=== PATIENT | female | born 1940 | race Caucasian/White ===

== ENCOUNTER → 2016-05-17 | Outpatient (CLI) | payer OTHER ==
[~2016-05-17] MED LIST: CALC-51 PO; CALC625T PO; CHOL100010 PO; COENCAP9 PO; FLAX100025 PO; IBUP-1050 PO; LEVO112T2 PO; LISI-461 PO; MULTTAB PO; OMEG1CAP71 PO; RXC5 PO; SIMV20TA5 PO; coq10 PO
== END | disposition home or self-care (01) ==
LOC: C.CTS 09:20
PROVIDERS: ATTEND Orthopaedic Surgery
DX: M19.011 Primary osteoarthritis, right shoulder (principal); Z01.818 Encounter for other preprocedural examination

== ENCOUNTER 2016-09-08 08:45 | Inpatient (IN) | payer OTHER ==
[2016-08-15 12:53] VITALS: BMI 29.0
--- NOTE | 2016-08-15 13:22 | PAT Medication Instructions ---
Service Date Aug 15, 2016. Current Home Medication List Calcium Carbonate-Vitamin D (Calcium), 1 TAB PO QAM Calcium Polycarbophil (Fibercon), 2 CAP PO BID Cholecalciferol (Vitamin D), 1,000 INTER.UNIT PO QAM Ibuprofen (Advil), 400 MG PO PRN Levothyroxine Sodium (Synthroid), 112 MCG PO QAM Lisinopril (Zestril), 10 MG PO QAM Multivitamins/Minerals (Mvi With Minerals), 1 TAB PO QAM Amelia 3 Fatty Acids-Amelia 6 Fa (Amelia 3-6-9 Complex), 1 CAP PO BID Simvastatin (Zocor), 20 MG PO QPM [coq10], 250 MG PO QPM Medication Instructions For Your Scheduled Surgery - Hold the following medications 2 weeks prior to surgery: [coq10], 250 MG PO QPM Amelia 3 Fatty Acids-Amelia 6 Fa (Amelia 3-6-9 Complex), 1 CAP PO BID - Hold the following medications the morning of surgery: Lisinopril (Zestril), 10 MG PO QAM Multivitamins/Minerals (Mvi With Minerals), 1 TAB PO QAM Calcium Carbonate-Vitamin D (Calcium), 1 TAB PO QAM Cholecalciferol (Vitamin D), 1,000 INTER.UNIT PO QAM Calcium Polycarbophil (Fibercon), 2 CAP PO BID Ibuprofen (Advil), 400 MG PO PRN (otherwise okay to continue per surgeon) - Take the following medications the morning of surgery with a sip of water OTHERWISE NOTHING TO EAT OR DRINK AFTER MIDNIGHT: Levothyroxine Sodium (Synthroid), 112 MCG PO QAM - Take the following medications as scheduled the night before surgery: Simvastatin (Zocor), 20 MG PO QPM Calcium Polycarbophil (Fibercon), 2 CAP PO BID If you have any questions please call us at [phone] or [phone] or [phone]
[2016-08-15 13:55] LABS: BASO % 0.8 %; BASO ABS # 0.07 K/uL (0-0.2); COMPLETE YES; EOS % 3.7 %; HEMATOCRIT 39.3 % (37-47); IG% 0.2 %; LYMPH % 36.1 %; LYMPH ABS # 3.12 K/uL (1.2-3.4); MEAN CORPUSCULAR HEMOGLOBIN 28.8 pg (25-34); MEAN CORPUSCULAR HGB CONC 34.4 g/dl (32-36); MEAN PLATELET VOLUME 8.9 fL (7.4-10.4); MONO % 8.3 %; NEUT % 50.9 %; PLATELET COUNT 299 K/uL (130-400); RED BLOOD COUNT 4.68 M/uL (4.2-5.4); WHITE BLOOD COUNT 8.65 K/uL (4.8-10.8)
[2016-08-15 14:14] LABS: PARTIAL THROMBOPLASTIN RATIO 1.1; PROTHROMBIN TIME (PATIENT) 10.8 SECONDS (9.0-12.0)
--- NOTE | 2016-08-15 14:17 | DIAGNOSTIC IMAGING REPORT ---
CHEST PREADMISSION(PA/LAT) HISTORY: Preop. COMPARISON: Chest 09/27/2015. FINDINGS: The lungs are clear. Cardiac silhouette is normal in size. No pleural effusions. No pneumothorax. Left shoulder prosthesis. IMPRESSION: No significant change compared to the prior study. No acute process. Electronically signed by: Sukhdeep Ortega M.D. 08/15/2016 2:16 PM Dictated Date/Time: 08/15/2016 2:14 PM
[2016-08-15 14:35] LABS: URINE APPEARANCE CLEAR (CLEAR); URINE BILIRUBIN NEG (NEG); URINE COLOR DK YELLOW; URINE NITRITE NEG (NEG); URINE SPECIFIC GRAVITY 1.014 (1.000-1.030); UROBILINOGEN NEG (NEG)
[2016-08-15 14:38] LABS: MANUAL MICROSCOPIC REQUIRED? YES; REVIEW REQ? NO
[2016-08-15 14:47] LABS: BUN/CREATININE RATIO 24.5 (10-20); CALCIUM 10.3 mg/dl (8.5-10.1); CREATININE 0.77 mg/dl (0.60-1.20); POTASSIUM 4.2 mmol/L (3.5-5.1)
[2016-08-15 15:01] LABS: URINE BACTERIA NEG (NEG)
--- NOTE | 2016-09-07 18:19 | HISTORY & PHYSICAL EXAMINATION ---
DATE OF ADMISSION: 09/08/2016 HISTORY AND PHYSICAL ADMISSION NOTE CHIEF COMPLAINT: Primary osteoarthritis of the right shoulder. HISTORY OF PRESENT ILLNESS: Taniya is a pleasant 75-year-old female who has been dealing with chronic right shoulder pain. She did have a history of a humeral shaft fracture in the past. She has a left total shoulder arthroplasty at an outside institution and has done fairly well with that. Unfortunately, she is now having right shoulder pain. She is having trouble sleeping at night. X-rays and clinical examination were diagnostic for osteoarthritis of the shoulder and she elected to proceed with a total shoulder arthroplasty. PAST MEDICAL HISTORY: Significant for hypothyroidism, hyperlipidemia, and hypertension. PAST SURGICAL HISTORY: Significant for appendectomy, left total shoulder arthroplasty, ORIF of the elbow, hysterectomy and cervical surgery. ALLERGIES: None. MEDICATIONS: Include Synthroid 112 mcg daily, lisinopril 10 mg daily, and simvastatin 20 mg daily. FAMILY HISTORY: Noncontributory. SOCIAL HISTORY: The patient is and remains active. REVIEW OF SYSTEMS: She complains of right shoulder pain. All other pertinent review of systems are negative. PHYSICAL EXAMINATION: GENERAL: She is awake, alert and oriented x3. She is in no apparent distress. She is very pleasant. HEENT: Pupils are equal, round and reactive to light. Extraocular motions intact. Oral mucosa is pink and moist. HEART: Regular rate per radial pulse. LUNGS: Ritu symmetrically bilaterally with no audible breath sounds. ABDOMEN: Soft, nontender, nondistended. MUSCULOSKELETAL: On physical examination of the right shoulder, she has about 120 degrees of forward elevation, 100 degrees of abduction, she has crepitus with range of motion. She has about 5/5 muscle strength with full can testing and external rotation. Negative bear hug and belly press test. IMAGING DATA: X-rays of the right shoulder do show advanced glenohumeral arthritis with mostly central wear of the glenoid. There is a fracture of the humeral shaft with slight angulation. The fracture is well healed. IMPRESSION: Advanced osteoarthritis of the right shoulder. PLAN: Will proceed with a Biomet comprehensive right total shoulder arthroplasty. Postoperatively, she will be placed in an arm sling and kept overnight for postoperative medical management. DARIELA
[~2016-09-08] VITALS: Ht 165.1 cm; Wt 79.6 kg
[~2016-09-08 08:45] MED LIST changes: +ACETAMINOPHEN 500 MG TAB PO SCH; +BUPIVACAINE 0.5 % 5 MG/1 ML PF 10ML VIAL ONE; +CEFAZOLIN 2000 MG/60 ML D5W 60 ML IV SCH; +CLONIDINE HCL 100 MCG/ML SYRINGE ONE; -COENCAP9 PO; +FAMOTIDINE 20 MG TAB PO SCH; -FLAX100025 PO; +GABAPENTIN 300 MG CAP PO SCH; +LACTATED RINGER'S 1000ML 1,000 ML IV SCH; +LACTATED RINGER'S 1000ML IV SCH; +MEPIVACAINE HCL 1.5% 30 ML VIAL ONE; +ROPIVACAINE 5MG/ML 30 ML 150 MG, BUPIVACAINE/EPINEPHR 0.5% MPF 30 ML, KETOROLAC TROMETH... INFIL SCH; -RXC5 PO; +TRANEXAMIC ACID INJ 1,000 MG in SODIUM CHLORIDE 0.9% 100ML 100 ML IV SCH
--- NOTE | 2016-09-08 08:50 | History & Physical Bridge Note ---
H&P Re-Evaluation Bridge Note: I have examined the patient, reviewed the History & Physical and in the interval since the performance of the History & Physical I have noted the following changes of clinical significance: No changes noted
[2016-09-08 09:05] VITALS: BP 144/93; PULSE 74; TEMP 36.7; O2SAT 96; Ht 165.1 cm; Wt 79.6 kg
[2016-09-08] MEDS ORDERED: MIDAZOLAM HCL 1 MG/ML 2ML VIAL ONE ×2 (10:58)
[2016-09-08] MEDS ORDERED: FENTANYL CITRATE INJ 50 MCG/1 ML 2 ML VIAL ONE (11:09)
[2016-09-08] MEDS ORDERED: BACITRACIN 50000 UNIT VIAL ONE (11:44)
[2016-09-08] MEDS ORDERED: ORTHO JOINT ANESTHETIC ONE (11:44)
[2016-09-08] MEDS ORDERED: PROPOFOL IV EMULSION 10 MG/ML 20 ML VIAL IV ONE (12:40)
[2016-09-08] MEDS ORDERED: ROCURONIUM BROMIDE 10 MG/ML 5 ML VIAL ONE (12:40)
[2016-09-08] MEDS ORDERED: SUCCINYLCHOLINE 100MG/5ML SYR IV ONE (12:40)
[2016-09-08] MEDS ORDERED: DEXAMETHASONE SOD INJ 4 MG/ML VIAL ONE (12:40)
[2016-09-08] MEDS ORDERED: GLYCOPYRROLATE INJ 0.2 MG/ML VIAL ONE (12:40)
[2016-09-08] MEDS ORDERED: LIDOCAINE HCL 2% 2 ML VIAL (20MG/ML) ONE (12:40)
[2016-09-08] MEDS ORDERED: ONDANSETRON INJ 2 MG/ML 2 ML VIAL ONE (12:40)
[2016-09-08] MEDS ORDERED: NEOSTIGMINE METHYLSULFATE 5 MG/5 ML SYR ONE (12:40)
[2016-09-08] MEDS ORDERED: PHENYLEPHRINE HCL INJ 10 MG/ML VIAL ONE (13:27)
[2016-09-08] MEDS ORDERED: METOCLOPRAMIDE HCL INJ 5 MG/ML 2 ML VIAL IV PRN (14:15)
[2016-09-08] MEDS ORDERED: NALOXONE HCL 0.4 MG/1 ML VIAL/CARP IV PRN (14:15)
[2016-09-08] MEDS ORDERED: BISACODYL 10 MG SUPP PR PRN (14:15)
[2016-09-08] MEDS ORDERED: ONDANSETRON INJ 2 MG/ML 2 ML VIAL IV PRN (14:15)
[2016-09-08] MEDS ORDERED: SOD PHOSPHATE/SOD BIPHOSPHATE ENEMA 132 ML BTL PR PRN (14:15)
[2016-09-08] MEDS ORDERED: MoRPHine SULFATE 2 MG/ML CARP IV PRN (14:15)
[2016-09-08] MEDS ORDERED: MAGNESIUM HYDROXIDE SUSP 30 ML UDC PO PRN (14:15)
[2016-09-08] MEDS ORDERED: OXYCODONE HCL IR 5 MG TAB (IMMEDIATE RELEASE) PO PRN (14:15)
[2016-09-08] MEDS ORDERED: D5W AND 1/2NSS + 20MEQ KCL 1,000 ML IV SCH (14:30)
[2016-09-08] MEDS ORDERED: EpHEDrine SULFATE INJ 50 MG/ML AMP IV PRN (14:45)
[2016-09-08] MEDS ORDERED: ATROPINE SULFATE 0.1 MG/ML 5ML SYR IV PRN (14:45)
--- NOTE | 2016-09-08 14:54 | DIAGNOSTIC IMAGING REPORT ---
RIGHT SHOULDER 2 VIEWS HISTORY: Post shoulder surgery Right COMPARISON: Right shoulder 10/04/2015. FINDINGS: Patient is status post a right total shoulder arthroplasty. The hardware appears intact. No fracture or dislocation. A surgical drain is in place. IMPRESSION: Status post right total shoulder arthroplasty. The hardware appears intact. Electronically signed by: Sukhdeep Ortega M.D. 09/08/2016 2:53 PM Dictated Date/Time: 09/08/2016 2:52 PM
[2016-09-08] MEDS ORDERED: KETOROLAC TROMETHAMINE 30 MG/ML VIAL ONE (15:01)
--- NOTE | 2016-09-08 15:25 | Anesthesiology Progress Note ---
Anesthesia Post Op Note Date & Time Sep 08, 2016 at 15:25 Vital Signs Pain Intensity: 0 Vital Signs Past 12 Hours Date Time Temp Pulse Resp B/P Pulse Ox O2 Delivery O2 Flow Rate FiO2 09/08/16 15:20 64 14 103/57 95 Nasal Cannula 3 09/08/16 15:10 36.2 66 14 101/64 95 Nasal Cannula 3 09/08/16 15:00 66 14 105/64 95 Nasal Cannula 3 09/08/16 14:50 71 14 109/66 96 Mask 5 09/08/16 14:40 73 14 112/64 97 Mask 5 09/08/16 14:30 36.1 70 14 114/70 98 Mask 10 09/08/16 09:05 36.7 74 20 144/93 96 Room Air Notes Mental Status: alert / awake / arousable, participated in evaluation Pt Amnestic to Procedure: Yes Nausea / Vomiting: adequately controlled Pain: adequately controlled Airway Patency, RR, SpO2: stable & adequate BP & HR: stable & adequate Hydration State: stable & adequate Anesthetic Complications: no major complications apparent
[2016-09-08 15:30] VITALS: BP 105/70; PULSE 67; TEMP 36.3; O2SAT 93
[2016-09-08 15:51] VITALS: BP 107/75; PULSE 64; TEMP 36.3; O2SAT 95
[2016-09-08 16:22] VITALS: BP 110/69; PULSE 67; TEMP 36.3; O2SAT 96
[2016-09-08] MEDS: D5W AND 1/2NSS + 20MEQ KCL 1,000 ML IV SCH (16:47)
--- NOTE | 2016-09-08 17:07 | [facility] Post Operative Brief Note ---
Immediate Operative Summary Operative Date Sep 08, 2016. Pre-Operative Diagnosis Osteoarthritis of the Right Shoulder Post-Operative Diagnosis Same as preop Procedure(s) Performed Right Total Shoulder Arthroplasty Cemented Surgeon Dr. Stevens Life Trainer Surgeon(s) Abraham Cruz PA-C Estimated Blood Loss 150 ML Findings as above Specimens A. Right Humeral Head and Bone Complication(s) None Disposition Recovery Room / PACU
--- NOTE | 2016-09-08 17:37 | OPERATIVE REPORT ---
DATE OF OPERATION: 09/08/2016 PREOPERATIVE DIAGNOSIS: Primary osteoarthritis of the right shoulder. POSTOPERATIVE DIAGNOSIS: Same. PROCEDURE: Right total shoulder arthroplasty. SURGEON: Dr. Aneesh Stevens. CORPORATE COMPLIANCE MANAGER: Abraham Cruz PA-C, whose assistance was necessary for positioning of the arm and helping with retraction. ANESTHESIA: General with a right interscalene nerve block. COMPLICATIONS: None. CONDITION: Stable to PACU. IMPLANTS USED: I used a Biomet comprehensive right total shoulder arthroplasty with a medium sized glenoid, a size 10 mini stem and a 46 x 21 mm eccentric head. The glenoid was cemented with Palacos-G cement, cemented in the 3 peg holes and on the posterior aspect of the glenoid component. INDICATIONS: Taniya is a pleasant 75-year-old female who presented to my office with chronic right shoulder pain. X-rays and clinical examination were diagnostic for primary osteoarthritis of the shoulder. After failing conservative treatment, she elected to undergo a right total shoulder arthroplasty. DESCRIPTION OF PROCEDURE: On 09/08/2016, she arrived at [facility] for the above procedure. She was seen in the preoperative holding area and the operative extremity was identified and signed. She was given a preoperative antibiotic and a right interscalene nerve block. She was taken back to the operating room, laid on the table in supine position and put under general anesthesia. She was then put into the beachchair position. The right shoulder was prepped and draped in sterile fashion. Time-out was done and the patient and operative extremity was properly identified. A deltopectoral approach was used. Dissection was taken down through the fascia and the deltopectoral interval was opened up. The anterior shoulder was exposed. The long head of the biceps tendon was tenotomized and the rotator interval was opened. The subscapularis was tenotomized off the lesser tuberosity and the humeral head was dislocated out of the joint. Sequential reaming up to a size 10 reamer was done. Off that reamer, a proximal humeral resection guide was placed and the proximal humerus was resected at 135 degrees of inclination and 30 degrees of retroversion. The inferior osteophytes were then removed and the glenoid was then exposed. Time was spent doing a superior and anterior capsular and labral release. The Biomet signature guide was then snapped on to the anterior aspect of the glenoid and the guidepin was placed in the total shoulder arthroplasty hole. The glenoid measured to be a size medium. The glenoid was then reamed and the central peg hole was drilled. The peripheral peg holes were then drilled and a size medium glenoid was cemented in place. Once cement had dried, the proximal humerus was exposed. Sequential broaching up to a size 10 broach was done. A 46 x 21 mm eccentric head was trialed and seemed to be a good fit. The final humeral implant was then impacted into place followed by a 46 x 21 mm eccentric head. The shoulder was reduced and there was about 50% translation posteriorly and inferiorly. I was able to get through a full range of motion. The subscapularis was then tenodesed back to the lesser tuberosity with transosseous FiberWire sutures and [id number] sutures. The shoulder was then irrigated with 3 liters of normal saline solution with bacitracin. Surrounding soft tissues were injected with 100 mL of an orthopedic pain control cocktail. A drain was placed. The skin was then closed with 2-0 Vicryl and V-Loc suture and a Prineo dressing. She was then placed in a soft dressing and a regular arm sling. She was then extubated, transferred to a the hospital at [facility] and taken to the postanesthesia care unit in stable condition. She tolerated the procedure well. I attest to the content of the Intraoperative Record and any orders documented therein. Any exceptio ns are noted below.
[2016-09-08] MEDS: ACETAMINOPHEN IV 1,000 MG in EMPTY BAG 0 ML IV SCH (17:38)
[2016-09-08 17:52] VITALS: BP 127/79; PULSE 71; O2SAT 96
[2016-09-08 18:44] VITALS: BP 133/78; PULSE 77; TEMP 36.3; O2SAT 95
[2016-09-08] MEDS ORDERED: NURSING DECISION MEDICATION ORDER SCH (19:45)
[2016-09-08] MEDS ORDERED: SENNA 8.6 MG TAB PO SCH (21:00)
[2016-09-08] MEDS ORDERED: SIMVASTATIN 20 MG TAB PO SCH (21:00)
[2016-09-08] MEDS: DOCUSATE SODIUM 100 MG CAP PO SCH (21:05)
[2016-09-08] MEDS: KETOROLAC TROMETHAMINE 15 MG/ML VIAL IV. SCH (21:05)
[2016-09-08] MEDS: CEFAZOLIN IV 2,000 MG in DEXTROSE 5% 50ML 50 ML IV SCH (21:05)
[2016-09-08] MEDS ORDERED: COUGH DROP (SUGAR FREE) LOZ 24 LOZ/1 BOX PO PRN (21:15)
[2016-09-09 00:10] VITALS: BP 122/77; PULSE 64; TEMP 36.4; O2SAT 96
[2016-09-09] MEDS: D5W AND 1/2NSS + 20MEQ KCL 1,000 ML IV SCH (03:12)
[2016-09-09] MEDS: KETOROLAC TROMETHAMINE 15 MG/ML VIAL IV. SCH ×2 (03:13→09:11)
[2016-09-09] MEDS: ACETAMINOPHEN IV 1,000 MG in EMPTY BAG 0 ML IV SCH ×2 (03:13→10:36)
[2016-09-09 03:25] VITALS: BP 133/77; PULSE 67; TEMP 36.5; O2SAT 95
[2016-09-09] MEDS: CEFAZOLIN IV 2,000 MG in DEXTROSE 5% 50ML 50 ML IV SCH (05:03)
[2016-09-09] MEDS ORDERED: LEVOTHYROXINE 112 MCG TAB PO SCH (06:00)
[2016-09-09 06:36] LABS: HEMATOCRIT 34.7 % (37-47); MEAN CELL VOLUME 86.3 fL (80-100); MEAN CORPUSCULAR HEMOGLOBIN 28.9 pg (25-34); MEAN CORPUSCULAR HGB CONC 33.4 g/dl (32-36); MEAN PLATELET VOLUME 8.7 fL (7.4-10.4); PLATELET COUNT 265 K/uL (130-400); RED BLOOD COUNT 4.02 M/uL (4.2-5.4); WHITE BLOOD COUNT 15.43 K/uL (4.8-10.8)
[2016-09-09 06:50] VITALS: BP 126/76; PULSE 72; TEMP 36.3; O2SAT 97
[2016-09-09] MEDS ORDERED: RXC5 PO (07:03)
--- NOTE | 2016-09-09 07:04 | Discharge Instructions ---
Discharge Instructions Date of Service Sep 09, 2016. Admission Reason for Admission: Right Shoulder Osteoarthritis Discharge Discharge Diagnosis / Problem: Arthritis Right Shoulder Discharge Goals Goal(s): Decrease discomfort, Improve function Activity Recommendations Activity Limitations: as noted below Shower/Bathe: may shower/bathe in 3 days . Instructions / Follow-Up Instructions / Follow-Up Activity and Therapy Recommendations: * Wear your sling for 3 weeks, unless otherwise instructed. You may remove your sling to shower and to dress, but otherwise, you should be in your sling at all times, including while sleeping * The shoulder replacement is very stable and you can use your hand while in the sling * Physical Therapy should start about 3-5 days from your day of surgery. Therapy will last about 8-12 weeks * You were shown a series of exercises in the hospital. Do these exercises daily including the exercises you were shown in physical therapy. Medications: * Narcotic You will likely be sent home from the hospital with a prescription for the narcotic pain medication that worked best throughout your stay. * Other medications may be prescribed for specific circumstances. If you have any questions, please call the office at . * Resume previous home medications unless otherwise instructed Dressing Care: You will likely have a Prineo dressing covering your incision. This looks like a glued on clear mesh dressing. Do not remove this dressing until you follow- up in my office in 2-3 weeks. Its pretty hard to peel it off. You may leave the Prineo dressing uncovered or cover it if it is draining a little bit. No further dressing care is required Showering: You may shower 3 days from the day of surgery. Leave the Prineo dressing intact and let the soapy shower water run over it. Do not scrub or soak the dressing or the incision. Things To Watch For: * Drainage from the incision site that occurs more than one week after your surgery. * Increased redness at the incision site. * Fever above 102 degrees Fahrenheit. * Unusual chest pain or shortness of breath. * Call [facility] at with any of the above problems Follow-Up Visit: Follow-up with Dr. Stevens 2-3 weeks after your day of surgery. An appointment was probably scheduled when you signed-up for surgery in the office. If you have any questions call Office Instructions: More detailed instructions as well as Frequently Asked Questions were provided in a folder by our office when you signed-up for surgery. Please review these instructions when you get home. If you have any further questions or concerns, please feel free to call the office at [phone] Current Hospital Diet Patient's current hospital diet: Regular Diet Discharge Diet Recommended Diet: Regular Diet Procedures Procedures Performed: Right Total Shoulder Arthroplasty Cemented Pending Studies Studies pending at discharge: no Medical Emergencies . Who to Call and When: Medical Emergencies: If at any time you feel your situation is an emergency, please call 911 immediately. . Non-Emergent Contact Non-Emergency issues call your: Surgeon Call Non-Emergent contact if: wound has increased drainage, wound has increased redness . "Provider Documentation" section prepared by Aneesh Stevens. . VTE Core Measure Inpt VTE Proph given/why not?: Treatment not indicated
[2016-09-09 07:09] LABS: BUN/CREATININE RATIO 19.1 (10-20); CALCIUM 8.6 mg/dl (8.5-10.1); CREATININE 0.92 mg/dl (0.60-1.20); POTASSIUM 4.7 mmol/L (3.5-5.1)
[2016-09-09] MEDS ORDERED: TRANEXAMIC ACID INJ 1,000 MG in SODIUM CHLORIDE 0.9% 100ML 100 ML IV SCH (08:30)
--- NOTE | 2016-09-09 08:40 | PROGRESS NOTE ---
DATE: 09/09/2016 CHIEF COMPLAINT: Status post right total shoulder arthroplasty postop day #1. PROGRESS: Taniya was seen and examined at bedside today. Overall, she is doing fairly well. She does not have much pain in her shoulder. She was able to get some sleep last night. Has no complaints. PHYSICAL EXAMINATION: RIGHT SHOULDER: The dressing is clean and dry and the drain is to suction. She is wearing her sling as instructed. Her radial, median and ulnar nerves were checked and intact at her wrist. LABORATORY DATA: She has an H\T\H today of 11.6 and 34.7, her PRP is still pending. Her vital signs are all stable on room air. She is voiding on her own. X-rays postoperatively of the right shoulder showed the prosthesis to be in anatomic alignment without any evidence of fracture, dislocation or loosening. IMPRESSION: Status post right total shoulder arthroplasty postop day #1. PLAN: At this point, she is doing very well. She will be seen by physical therapy today for hand, wrist, elbow and pendulum exercises. The nursing staff can change her dressing and pull the drain and we will discharge her to home later this morning.
--- NOTE | 2016-09-09 08:58 | DISCHARGE SUMMARY ---
DISCHARGE DIAGNOSIS: Primary osteoarthritis of the right shoulder. PROCEDURE: Right total shoulder arthroplasty on 09/08/[address] Aneesh Stevens. DISCHARGE INSTRUCTIONS: 1. Oxycodone 5-10 mg every 4 hours as needed for pain. 2. Calcium tablet daily. 3. FiberCon 2 tabs twice a day. 4. Vitamin D 1000 units daily. 5. Advil 400 mg as needed. 6. Synthroid 112 mcg daily. 7. Zestril 10 mg daily. 8. Daily multivitamin. 9. Zocor 20 mg daily. 10. CoQ10 250 mg daily. 11. Right arm sling for 3 weeks. 12. Follow up with Dr. Stevens in 2 weeks. 13. Start physical therapy this week. 14. Call the office of Dr. Stevens with any questions or concerns. HOSPITAL COURSE: Taniya is a pleasant 75-year-old female who presented to my office with chronic right shoulder pain. X-rays and clinical examination were diagnostic for primary osteoarthritis of the right shoulder. After failing extensive conservative treatment, she elected to undergo a right total shoulder arthroplasty. On 09/08/2016, she arrived at [facility] and underwent a right shoulder replacement without complications. She had a general anesthetic and a right interscalene nerve block. Postoperatively, she was placed in an arm sling and discharged to general orthopedic floor. Her hospital course was uneventful. On postop day #1, her H\T\H was stable at 11.6 and 34.7. She was able to participate well with physical therapy. The nursing staff changed the dressing, pulled the drain, and she was subsequently discharged to home with oral pain medications and the above instructions.
[2016-09-09] MEDS ORDERED: CEROVITE ADV FORMULA TAB PO SCH (09:00)
[2016-09-09] MEDS ORDERED: PANTOprazole SOD 40 MG TAB PO SCH (09:00)
[2016-09-09] MEDS ORDERED: CHOLECALCIFEROL 1000 INTER.UNIT TAB PO SCH (09:00)
[2016-09-09] MEDS ORDERED: MULTIVITAMIN TAB PO SCH (09:00)
[2016-09-09] MEDS ORDERED: LISINOPRIL 10 MG TAB PO SCH (09:00)
[2016-09-09] MEDS: DOCUSATE SODIUM 100 MG CAP PO SCH (09:11)
[2016-09-09 10:51] VITALS: BP 126/76; PULSE 72; TEMP 36.3; O2SAT 97
== END 2016-09-09 11:20 | disposition home or self-care (01) | DRG 483 ==
LOC: ENRESERVTM → ENRESERVDT → C.ACU 08:45 → C.3E 09:00
PROVIDERS: ADMIT Orthopaedic Surgery; ATTEND Orthopaedic Surgery
PROC: 0RRJ0JZ Replacement of Right Shoulder Joint with Synthetic Substitute, Open Approach (ICD-10-PCS; principal; 2016-09-08 11:10)
DX: M19.011 Primary osteoarthritis, right shoulder (principal); Z96.612 Presence of left artificial shoulder joint; I10 Essential (primary) hypertension; E03.9 Hypothyroidism, unspecified; E78.5 Hyperlipidemia, unspecified; Z79.899 Other long term (current) drug therapy

== ENCOUNTER → 2017-02-20 | Outpatient (CLI) | payer OTHER ==
[~2017-02-20] MED LIST changes: -ACETAMINOPHEN 500 MG TAB PO SCH; -BUPIVACAINE 0.5 % 5 MG/1 ML PF 10ML VIAL ONE; -CEFAZOLIN 2000 MG/60 ML D5W 60 ML IV SCH; -CLONIDINE HCL 100 MCG/ML SYRINGE ONE; -FAMOTIDINE 20 MG TAB PO SCH; -GABAPENTIN 300 MG CAP PO SCH; -LACTATED RINGER'S 1000ML 1,000 ML IV SCH; -LACTATED RINGER'S 1000ML IV SCH; -MEPIVACAINE HCL 1.5% 30 ML VIAL ONE; -ROPIVACAINE 5MG/ML 30 ML 150 MG, BUPIVACAINE/EPINEPHR 0.5% MPF 30 ML, KETOROLAC TROMETH... INFIL SCH; +RXC5 PO; -TRANEXAMIC ACID INJ 1,000 MG in SODIUM CHLORIDE 0.9% 100ML 100 ML IV SCH
--- NOTE | 2017-02-20 14:24 | MAMMOGRAPHY REPORT ---
BILATERAL DIGITAL SCREENING MAMMOGRAM WITH CAD: 02/20/2017 CLINICAL HISTORY: Routine screening. Patient has no complaints. TECHNIQUE: Bilateral CC and MLO views were obtained. Current study was also evaluated with a Compute r Aided Detection (CAD) system. COMPARISON: Comparison is made to exams dated: 02/15/2016 mammogram, 02/12/2015 mammogram, 02/11/2014 m ammogram, 11/26/2012 mammogram, 11/21/2011 mammogram, and 03/21/2011 mammogram - [facility] enter. BREAST COMPOSITION: There are scattered areas of fibroglandular density in both breasts. FINDINGS: There are mild vascular calcifications in both breasts. No suspicious mass, architectural distortion or cluster of microcalcifications is seen. IMPRESSION: ACR BI-RADS CATEGORY 2: BENIGN There is no mammographic evidence of malignancy. A 1 year screening mammogram is recommended. The pa tient will receive written notification of the results. Approximately 10% of breast cancers are not detected with mammography. A negative mammographic report should not delay biopsy if a clinically suggestive mass is present. Mariana Richardson M.D. ay/:02/20/2017 08:25:56 Plant Supervisor: Davida BARTON(Evelyn)(Nereida), letter sent: Normal 1/2 BI-RADS Code: ACR BI-RADS Category 2: Benign
== END | disposition home or self-care (01) ==
LOC: C.MAMM 07:45
PROVIDERS: ATTEND Family Medicine
DX: Z12.31 Encounter for screening mammogram for malignant neoplasm of breast (principal)

== ENCOUNTER 2019-08-03 14:44 | Inpatient (IN) ==
[2019-08-03] MEDS ORDERED: ACETAMINOPHEN 500 MG TAB PO STA (14:54)
[2019-08-03] MEDS ORDERED: SODIUM CHLORIDE 0.9% 1000ML 1,000 ML IV ONE ×3 (14:54→19:02)
--- NOTE | 2019-08-03 15:04 | Emergency Department Note ---
History of Present Illness General Chief complaint: Diarrhea Time Seen by Provider: 08/03/19 14:45 History of Present Illness The patient is a 78-year-old female who presented to the emergency department for an evaluation of abdominal pain. The patient has been noticing abdominal pain over the last 24 hours. She also started having multiple loose stools with mucus. The patient was recently treated for abdominal pain and C. difficile. Her last dose was approximately 6 to 7 days ago. She was initially treated with Cipro and Flagyl. When she developed symptoms the Flagyl dose was extended. The patient started having return of symptoms last evening. She also has a fever upon arrival to the emergency department. She denies having any chest pain or trouble breathing. She does complain of palpitations. The patient has not taken Tylenol today. She is not been taking any pain medication specifical ly other than [id number] medications. The patient has not had any recent falls. She is had no recent travel or coughing. She denies having any headache. She arrives the emergency department via ambulance. Home Medications Home Medications Medication Instructions Recorded Confirmed Type acetaminophen [Tylenol Extra 1,000 mg PO TID PRN 08/03/19 08/03/19 History Strength] famotidine [Pepcid] 40 mg PO HS 08/03/19 08/03/19 History levothyroxine [Synthroid] 112 mcg PO DAILYBB 08/03/19 08/03/19 History lisinopril [Zestril] 10 mg PO QAM 08/03/19 08/03/19 History rosuvastatin [Crestor] 5 mg PO HS 08/03/19 08/03/19 History Allergies Allergy/AdvReac Type Severity Reaction Status Date / Time No Known Allergies Allergy Unknown Verified 08/03/19 17:04 Past Med/Surg History Medical History Sensorineural hearing loss (SNHL) of both ears Surgical History History of elbow surgery left-fracture repair History of eye surgery History of hysterectomy 1970 History of shoulder replacement bilateral Family History Father No significant family history Mother No significant family history Other No family history of bleeding disorder Social History marital status: current occupational status: retired Feels Safe at Home: Yes Smoking Status: Never smoker Second Hand Exposure: No ; Hx Alcohol Use: No Hx Substance Use: No Review of Systems See HPI for pertinent positives & negatives. and A total of 10 systems reviewed and were otherwise negative Physical Exam Vital Signs Vital Signs - 24 hr 08/03/19 14:47 08/03/19 14:54 08/03/19 14:55 Temperature 37.5 C Temperature Source Oral Pulse Rate 127 H 126 H Pulse Rate from SpO2 Sensor Respiratory Rate 20 20 Respiratory Effort / Characteristics Respiratory Depth Respiratory Pattern Blood Pressure 162/70 H Blood Pressure Mean 101 Blood Pressure Position Pulse Oximetry 97 Oxygen Delivery Method Room Air Sepsis Recent Fever Within 48 Hours Sepsis New/Unexplained Change in Mental Status Sepsis Action Taken by Nursing 08/03/19 14:56 08/03/19 15:00 08/03/19 15:10 Temperature 37.1 C Temperature Source Oral Pulse Rate 129 H 124 H 124 H Pulse Rate from SpO2 Sensor Respiratory Rate 20 15 21 Respiratory Effort / Characteristics Non-Labored Spontaneous Respiratory Depth Normal Respiratory Pattern Regular Blood Pressure 162/70 H Blood Pressure Mean 100 Blood Pressure Position Lying Pulse Oximetry 97 Oxygen Delivery Method Room Air Sepsis Recent Fever Within 48 Hours No Sepsis New/Unexplained Change in Mental Status No Sepsis Action Taken by Nursing No Action Required 08/03/19 15:20 08/03/19 15:29 08/03/19 15:30 Temperature Temperature Source Pulse Rate 121 H 120 H 121 H Pulse Rate from SpO2 Sensor 119 H 121 H Respiratory Rate 17 17 18 Respiratory Effort / Characteristics Respiratory Depth Respiratory Pattern Blood Pressure 106/87 Blood Pressure Mean 91 Blood Pressure Position Pulse Oximetry 95 94 Oxygen Delivery Method Room Air Room Air Sepsis Recent Fever Within 48 Hours Sepsis New/Unexplained Change in Mental Status Sepsis Action Taken by Nursing 08/03/19 15:31 08/03/19 15:34 08/03/19 15:40 Temperature Temperature Source Pulse Rate 118 H 118 H 117 H Pulse Rate from SpO2 Sensor 118 H 118 H 117 H Respiratory Rate 15 14 18 Respiratory Effort / Characteristics Respiratory Depth Respiratory Pattern Blood Pressure 128/61 Blood Pressure Mean 85 Blood Pressure Position Pulse Oximetry 95 93 97 Oxygen Delivery Method Room Air Room Air Room Air Sepsis Recent Fever Within 48 Hours Sepsis New/Unexplained Change in Mental Status Sepsis Action Taken by Nursing 08/03/19 15:45 08/03/19 15:50 08/03/19 16:12 Temperature Temperature Source Pulse Rate 110 H 108 H Pulse Rate from SpO2 Sensor 111 H 109 H 104 H Respiratory Rate 12 16 Respiratory Effort / Characteristics Respiratory Depth Respiratory Pattern Blood Pressure 123/57 L Blood Pressure Mean 82 Blood Pressure Position Pulse Oximetry 97 96 95 Oxygen Delivery Method Room Air Room Air Sepsis Recent Fever Within 48 Hours Sepsis New/Unexplained Change in Mental Status Sepsis Action Taken by Nursing 08/03/19 16:14 08/03/19 16:15 08/03/19 16:16 Temperature Temperature Source Pulse Rate 92 H 78 88 Pulse Rate from SpO2 Sensor 104 H 104 H 102 H Respiratory Rate 18 16 18 Respiratory Effort / Characteristics Respiratory Depth Respiratory Pattern Blood Pressure 116/54 L 117/58 L Blood Pressure Mean 76 74 Blood Pressure Position Pulse Oximetry 96 96 96 Oxygen Delivery Method Room Air Room Air Room Air Sepsis Recent Fever Within 48 Hours Sepsis New/Unexplained Change in Mental Status Sepsis Action Taken by Nursing 08/03/19 16:20 08/03/19 16:30 08/03/19 16:31 Temperature Temperature Source Pulse Rate 100 H 101 H Pulse Rate from SpO2 Sensor 100 H 100 H 101 H Respiratory Rate 17 15 13 Respiratory Effort / Characteristics Respiratory Depth Respiratory Pattern Blood Pressure 110/56 L Blood Pressure Mean 76 Blood Pressure Position Pulse Oximetry 93 97 96 Oxygen Delivery Method Room Air Room Air Sepsis Recent Fever Within 48 Hours Sepsis New/Unexplained Change in Mental Status Sepsis Action Taken by Nursing 08/03/19 16:40 08/03/19 16:45 08/03/19 16:50 Temperature Temperature Source Pulse Rate 97 H 96 H 95 H Pulse Rate from SpO2 Sensor 97 H 96 H 96 H Respiratory Rate 21 18 19 Respiratory Effort / Characteristics Respiratory Depth Respiratory Pattern Blood Pressure 110/57 L Blood Pressure Mean 77 Blood Pressure Position Pulse Oximetry 96 95 96 Oxygen Delivery Method Sepsis Recent Fever Within 48 Hours Sepsis New/Unexplained Change in Mental Status Sepsis Action Taken by Nursing 08/03/19 17:00 08/03/19 17:01 08/03/19 17:11 Temperature Temperature Source Pulse Rate 93 H 100 H 106 H Pulse Rate from SpO2 Sensor 95 H 107 H Respiratory Rate 16 16 24 Respiratory Effort / Characteristics Respiratory Depth Respiratory Pattern Blood Pressure 112/56 L Blood Pressure Mean 79 Blood Pressure Position Pulse Oximetry 95 97 Oxygen Delivery Method Sepsis Recent Fever Within 48 Hours Sepsis New/Unexplained Change in Mental Status Sepsis Action Taken by Nursing 08/03/19 17:15 08/03/19 17:20 08/03/19 17:30 Temperature Temperature Source Pulse Rate 99 H 94 H 90 Pulse Rate from SpO2 Sensor 98 H 94 H 90 Respiratory Rate 16 14 14 Respiratory Effort / Characteristics Respiratory Depth Respiratory Pattern Blood Pressure 112/58 L 106/56 L Blood Pressure Mean 82 70 Blood Pressure Position Pulse Oximetry 96 95 96 Oxygen Delivery Method Room Air Room Air Room Air Sepsis Recent Fever Within 48 Hours Sepsis New/Unexplained Change in Mental Status Sepsis Action Taken by Nursing 08/03/19 17:31 08/03/19 17:40 08/03/19 17:45 Temperature Temperature Source Pulse Rate 91 H 92 H Pulse Rate from SpO2 Sensor 91 H 93 H Respiratory Rate 16 16 Respiratory Effort / Characteristics Respiratory Depth Respiratory Pattern Blood Pressure 126/90 Blood Pressure Mean 106 Blood Pressure Position Pulse Oximetry 96 98 Oxygen Delivery Method Room Air Room Air Room Air Sepsis Recent Fever Within 48 Hours Sepsis New/Unexplained Change in Mental Status Sepsis Action Taken by Nursing 08/03/19 17:54 08/03/19 17:55 08/03/19 18:00 Temperature 36.9 C Temperature Source Oral Pulse Rate 92 H Pulse Rate from SpO2 Sensor 99 H 91 H Respiratory Rate 20 17 Respiratory Effort / Characteristics Respiratory Depth Respiratory Pattern Blood Pressure 115/57 L Blood Pressure Mean 83 Blood Pressure Position Pulse Oximetry 98 97 Oxygen Delivery Method Room Air Room Air Sepsis Recent Fever Within 48 Hours Sepsis New/Unexplained Change in Mental Status Sepsis Action Taken by Nursing 08/03/19 18:10 08/03/19 18:15 08/03/19 18:20 Temperature Temperature Source Pulse Rate 88 90 90 Pulse Rate from SpO2 Sensor 89 91 H 89 Respiratory Rate 20 21 15 Respiratory Effort / Characteristics Respiratory Depth Respiratory Pattern Blood Pressure 115/56 L Blood Pressure Mean 83 Blood Pressure Position Pulse Oximetry 97 98 96 Oxygen Delivery Method Room Air Room Air Room Air Sepsis Recent Fever Within 48 Hours Sepsis New/Unexplained Change in Mental Status Sepsis Action Taken by Nursing 08/03/19 18:30 08/03/19 18:31 08/03/19 18:32 Temperature Temperature Source Pulse Rate 97 H 100 H 99 H Pulse Rate from SpO2 Sensor 94 H 96 H 97 H Respiratory Rate 17 20 14 Respiratory Effort / Characteristics Respiratory Depth Respiratory Pattern Blood Pressure 99/56 L Blood Pressure Mean 69 Blood Pressure Position Pulse Oximetry 96 93 100 Oxygen Delivery Method Room Air Room Air Sepsis Recent Fever Within 48 Hours Sepsis New/Unexplained Change in Mental Status Sepsis Action Taken by Nursing 08/03/19 18:40 08/03/19 18:45 08/03/19 18:50 Temperature Temperature Source Pulse Rate 86 86 92 H Pulse Rate from SpO2 Sensor 86 87 91 H Respiratory Rate 17 13 17 Respiratory Effort / Characteristics Respiratory Depth Respiratory Pattern Blood Pressure 106/58 L Blood Pressure Mean 87 Blood Pressure Position Pulse Oximetry 99 99 99 Oxygen Delivery Method Room Air Room Air Room Air Sepsis Recent Fever Within 48 Hours Sepsis New/Unexplained Change in Mental Status Sepsis Action Taken by Nursing GENERAL: The patient is awake and alert. She is somewhat anxious appearing. EYES: The conjunctivae are clear. The pupils are round and reactive. EARS, NOSE, MOUTH AND THROAT: The nose is without any evidence of any deformity. Mucous membranes are dry. NECK: The neck is nontender and supple. RESPIRATORY: Normal respiratory effort is noted there is no evidence of wheezing rhonchi or rales CARDIOVASCULAR: Tachycardic rate with regular rhythm was noted. There is no definite murmur. GASTROINTESTINAL: The abdomen is soft. Abdomen is mildly distended. There is diffuse tenderness on the lower abdomen. There is no guarding rigidity. MUSCULOSKELETAL/EXTREMITIES: There is no evidence of gross deformity full range of motion is noted in the hips and shoulders. SKIN: There is no obvious evidence of any rash. There are no petechiae, pallor or cyanosis noted. NEUROLOGIC: Patient is awake alert and oriented x3 strength is symmetric patellar reflexes are 2+ bilaterally Course Course 1919: I discussed this case with Dr. Blas who is on-call for the [facility] hospitalist group. He is agreed to evaluate the patient in the emergency department for further management disposition. Administered Medications Ioversol (Optiray 320 100ml) 90 ml IV ONCE PRN PRN Reason: Interaction Checking Stop: 08/07/19 15:58 Last Admin: 08/03/19 16:00 Dose: 90 ml Documented by: [id number] Discontinued Medications Acetaminophen (Tylenol) 1,000 mg PO NOW STA Stop: 08/03/19 14:55 Last Admin: 08/03/19 15:34 Dose: 1,000 mg Documented by: [id number] Sodium Chloride (Nss 1000ml) 1,000 mls @ 999 mls/hr IV .Q1H1M ONE Stop: 08/03/19 15:54 Last Infusion: 08/03/19 16:41 Dose: 0 mls/hr Documented by: [id number] Admin: 08/03/19 15:34 Dose: 999 mls/hr Documented by: [id number] Sodium Chloride (Nss 1000ml) 1,000 mls @ 999 mls/hr IV .Q1H1M ONE Stop: 08/03/19 17:14 Last Infusion: 08/03/19 17:40 Dose: 0 mls/hr Documented by: [id number] Admin: 08/03/19 16:42 Dose: 999 mls/hr Documented by: [id number] Magnesium Sulfate/Dextrose (Magnesium Sulfate / D5w) 1 gm in 100 mls @ 100 mls/hr IV ONE ONE Stop: 08/03/19 17:13 Last Infusion: 08/03/19 17:22 Dose: 0 mls/hr Documented by: [id number] Admin: 08/03/19 16:19 Dose: 100 mls/hr Documented by: [id number] Medical Decision Making Differential Diagnosis Etiologies such as appendicitis, diverticulitis, obstruction, inflammatory bowel disease, renal colic, PUD, biliary pathology, pancreatitis, mesenteric ischemia, aortic pathology, infections, genitourinary, UTI, perforated viscus, as well as others were entertained. Medical Records Attestation: I reviewed the patient's medical records. Home Medications Current Medication List: was personally reviewed by me Laboratory Data Attestation: I reviewed the patient's lab results. Result diagrams: 08/03/19 15:14 08/03/19 15:14 Lab Results 08/03/19 08/03/19 08/03/19 Range/Units 15:14 15:14 15:14 WBC 23.33 H (4.8-10.8) K/uL RBC 4.43 (4.2-5.4) M/uL Hgb 12.8 (12.0-16.0) g/dL POC Hgb (12.0-16.0) g/dl Hct 38.8 (37-47) % POC Hct (37-47) % MCV 87.6 (80-100) fL MCH 28.9 (25-34) pg MCHC 33.0 (32-36) g/dL RDW Std Deviation 44.8 (36.4-46.3) fL RDW Coeff of Girma 13.9 (11.5-14.5) % Plt Count 310 (130-400) K/uL MPV 9.1 (7.4-10.4) fL Immature Gran % (Auto) 0.3 % Neut % (Auto) 89.5 % Lymph % (Auto) 4.1 % [place] % (Auto) 5.8 % Eos % (Auto) 0.0 % Baso % (Auto) 0.3 % Immature Gran # (Auto) 0.08 H (0.00-0.02) K/uL Neut # (Auto) 20.88 H (1.4-6.5) K/uL Lymph # (Auto) 0.96 L (1.2-3.4) K/uL [place] # (Auto) 1.35 H (0.11-0.59) K/uL Eos # (Auto) 0.00 (0-0.5) K/uL Baso # (Auto) 0.06 (0-0.2) K/uL PT 11.4 (9.0-12.0) Seconds INR 1.1 (0.9-1.1) APTT 28.7 (21.0-31.0) Seconds PTT Ratio 1.0 POC Sodium (135-144) mmol/L Sodium 136 (136-145) mmol/L POC Potassium (3.3-5.0) mmol/L Potassium 4.0 (3.5-5.1) mmol/L POC Chloride (101-112) mmol/L Chloride 102 (98-107) mmol/L Carbon Dioxide 24 (21-32) mmol/L POC Total CO2 (24-31) mEq/l Anion Gap 10.0 (3-11) POC Anion Gap (16-25) mmol/L POC BUN (7-18) mg/dl BUN 16 (7-18) mg/dl Creatinine 0.97 (0.6-1.2) mg/dl POC Creatinine (0.6-1.3) mg/dl Est Cr Clr Drug Dosing 47.6 ml/min Est GFR ( Amer) 65.3 Est GFR (Non-Af Amer) 56.3 BUN/Creatinine Ratio 17.0 (10-20) Glucose 138 H (70-99) mg/dl POC Glucose (other) (70-99) mg/dl Lactate (0.4-2.0) mmol/L Calcium 9.2 (8.5-10.1) mg/dl POC Ioniz Calcium Surya (1.12-1.32) mmol/l Magnesium 1.6 L (1.8-2.4) mg/dl Total Bilirubin 0.4 (0.2-1) mg/dl AST 17 (15-37) U/L ALT 22 (12-78) U/L Alkaline Phosphatase 62 (45-117) U/L Troponin I < 0.015 (0-0.045) ng/ml Total Protein 7.3 (6.4-8.2) gm/dl Albumin 3.4 (3.4-5.0) gm/dl Globulin 3.9 (2.5-4.0) gm/dl Albumin/Globulin Ratio 0.9 (0.9-2) Procalcitonin (0-0.5) ng/ml Urine Color Urine Appearance (Clear) Urine pH (4.5-7.5) Ur Specific [place] (1.000-1.030) Urine Protein (Negative) Urine Glucose (UA) (Negative) Urine Ketones (Negative) Urine Blood (Negative) Urine Nitrite (Negative) Urine Bilirubin (Negative) Urine Urobilinogen (Negative) Ur Leukocyte Esterase (Negative) Stl C. diff Tox B Gene (Neg) 08/03/19 08/03/19 08/03/19 Range/Units 15:14 15:40 15:49 WBC (4.8-10.8) K/uL RBC (4.2-5.4) M/uL Hgb (12.0-16.0) g/dL POC Hgb 13.3 (12.0-16.0) g/dl Hct (37-47) % POC Hct 39 (37-47) % MCV (80-100) fL MCH (25-34) pg MCHC (32-36) g/dL RDW Std Deviation (36.4-46.3) fL RDW Coeff of Girma (11.5-14.5) % Plt Count (130-400) K/uL MPV (7.4-10.4) fL Immature Gran % (Auto) % Neut % (Auto) % Lymph % (Auto) % [place] % (Auto) % Eos % (Auto) % Baso % (Auto) % Immature Gran # (Auto) (0.00-0.02) K/uL Neut # (Auto) (1.4-6.5) K/uL Lymph # (Auto) (1.2-3.4) K/uL [place] # (Auto) (0.11-0.59) K/uL Eos # (Auto) (0-0.5) K/uL Baso # (Auto) (0-0.2) K/uL PT (9.0-12.0) Seconds INR (0.9-1.1) APTT (21.0-31.0) Seconds PTT Ratio POC Sodium 135 (135-144) mmol/L Sodium (136-145) mmol/L POC Potassium 4.0 (3.3-5.0) mmol/L Potassium (3.5-5.1) mmol/L POC Chloride 99 L (101-112) mmol/L Chloride (98-107) mmol/L Carbon Dioxide (21-32) mmol/L POC Total CO2 24 (24-31) mEq/l Anion Gap (3-11) POC Anion Gap 17.0 (16-25) mmol/L POC BUN 17 (7-18) mg/dl BUN (7-18) mg/dl Creatinine (0.6-1.2) mg/dl POC Creatinine 0.8 (0.6-1.3) mg/dl Est Cr Clr Drug Dosing ml/min Est GFR ( Amer) Est GFR (Non-Af Amer) BUN/Creatinine Ratio (10-20) Glucose (70-99) mg/dl POC Glucose (other) 138 H (70-99) mg/dl Lactate 2.2 H* (0.4-2.0) mmol/L Calcium (8.5-10.1) mg/dl POC Ioniz Calcium Surya 1.15 (1.12-1.32) mmol/l Magnesium (1.8-2.4) mg/dl Total Bilirubin (0.2-1) mg/dl AST (15-37) U/L ALT (12-78) U/L Alkaline Phosphatase (45-117) U/L Troponin I (0-0.045) ng/ml Total Protein (6.4-8.2) gm/dl Albumin (3.4-5.0) gm/dl Globulin (2.5-4.0) gm/dl Albumin/Globulin Ratio (0.9-2) Procalcitonin 0.11 (0-0.5) ng/ml Urine Color Urine Appearance (Clear) Urine pH (4.5-7.5) Ur Specific [place] (1.000-1.030) Urine Protein (Negative) Urine Glucose (UA) (Negative) Urine Ketones (Negative) Urine Blood (Negative) Urine Nitrite (Negative) Urine Bilirubin (Negative) Urine Urobilinogen (Negative) Ur Leukocyte Esterase (Negative) Stl C. diff Tox B Gene (Neg) 08/03/19 08/03/19 08/03/19 Range/Units 17:10 17:44 17:50 WBC (4.8-10.8) K/uL RBC (4.2-5.4) M/uL Hgb (12.0-16.0) g/dL POC Hgb (12.0-16.0) g/dl Hct (37-47) % POC Hct (37-47) % MCV (80-100) fL MCH (25-34) pg MCHC (32-36) g/dL RDW Std Deviation (36.4-46.3) fL RDW Coeff of Girma (11.5-14.5) % Plt Count (130-400) K/uL MPV (7.4-10.4) fL Immature Gran % (Auto) % Neut % (Auto) % Lymph % (Auto) % [place] % (Auto) % Eos % (Auto) % Baso % (Auto) % Immature Gran # (Auto) (0.00-0.02) K/uL Neut # (Auto) (1.4-6.5) K/uL Lymph # (Auto) (1.2-3.4) K/uL [place] # (Auto) (0.11-0.59) K/uL Eos # (Auto) (0-0.5) K/uL Baso # (Auto) (0-0.2) K/uL PT (9.0-12.0) Seconds INR (0.9-1.1) APTT (21.0-31.0) Seconds PTT Ratio POC Sodium (135-144) mmol/L Sodium (136-145) mmol/L POC Potassium (3.3-5.0) mmol/L Potassium (3.5-5.1) mmol/L POC Chloride (101-112) mmol/L Chloride (98-107) mmol/L Carbon Dioxide (21-32) mmol/L POC Total CO2 (24-31) mEq/l Anion Gap (3-11) POC Anion Gap (16-25) mmol/L POC BUN (7-18) mg/dl BUN (7-18) mg/dl Creatinine (0.6-1.2) mg/dl POC Creatinine (0.6-1.3) mg/dl Est Cr Clr Drug Dosing ml/min Est GFR ( Amer) Est GFR (Non-Af Amer) BUN/Creatinine Ratio (10-20) Glucose (70-99) mg/dl POC Glucose (other) (70-99) mg/dl Lactate 1.3 (0.4-2.0) mmol/L Calcium (8.5-10.1) mg/dl POC Ioniz Calcium Surya (1.12-1.32) mmol/l Magnesium (1.8-2.4) mg/dl Total Bilirubin (0.2-1) mg/dl AST (15-37) U/L ALT (12-78) U/L Alkaline Phosphatase (45-117) U/L Troponin I (0-0.045) ng/ml Total Protein (6.4-8.2) gm/dl Albumin (3.4-5.0) gm/dl Globulin (2.5-4.0) gm/dl Albumin/Globulin Ratio (0.9-2) Procalcitonin (0-0.5) ng/ml Urine Color Yellow Urine Appearance Clear (Clear) Urine pH 5.0 (4.5-7.5) Ur Specific [place] 1.036 H (1.000-1.030) Urine Protein Negative (Negative) Urine Glucose (UA) Negative (Negative) Urine Ketones Negative (Negative) Urine Blood Negative (Negative) Urine Nitrite Negative (Negative) Urine Bilirubin Negative (Negative) Urine Urobilinogen Negative (Negative) Ur Leukocyte Esterase Negative (Negative) Stl C. diff Tox B Gene Positive Cdiff Gene H (Neg) Imaging Data Radiologist's Impression: ABDOMEN AND PELVIS CT WITH IV CONTRAST CT DOSE: 737.51 mGycm HISTORY: Acute generalized abdominal pain with fever pain and fever TECHNIQUE: Multiaxial CT images of the abdomen and pelvis were performed following the IV administration of 90 cc of Optiray 320, A dose lowering technique was utilized adhering to the principles of ALARA. COMPARISON STUDY: CT abdomen and pelvis 09/27/2015, MRI lumbar spine 07/04/2019. FINDINGS: Clear lung bases. No pneumatosis or pneumoperitoneum. Imaged inferior cardiac chambers are unremarkable. Coronary artery calcifications. 2.3 x 1.9 x 2.1 cm ovoid hyperdense structure adjacent to the splenic hilum previously measured 2.0 cm on study from 2016. Moderate generalized pancreatic atrophy. Cholecystectomy. Adrenal glands and liver appear unremarkable. Patency of the hepatic and portal veins. Mild nonspecific bilateral perinephric stranding. There are a few small left- sided renal sinus cysts noted. No renal or ureteral calculi or obstructive uropathy. Partial distention of the urinary bladder with mild wall thickening. Hysterectomy. Extensive calcified plaque of the abdominal aorta without aneurysm. Unremarkable IVC. No adenopathy. Small duodenal diverticulum. No small bowel obstruction. Scattered air-fluid levels throughout the colon. Circumferential wall thickening of the colon with pericolonic stranding extends from the hepatic flexure through the sigmoid and rectum. Sigmoid diverticulosis. Prominent lymph nodes of the sigmoid mesocolon. There is loss of the normal fat plane between the inflamed sigmoid colon and the vaginal cuff with air seen within the vaginal cuff. No drainable fluid collection or perforation. Prior appendectomy. Breast parenchyma and soft tissues are unremarkable. Multiple posterior disc osteophyte complex formations are noted with advanced facet arthropathy. Severe central canal stenosis is noted at L3-L4. Large posterior disc osteophyte complex at L1-L2 results in at least moderate central canal stenosis. Multilevel central canal and foraminal narrowing. Degenerative changes of the spine, pelvis and hips. IMPRESSION: 1. Wall thickening with pericolonic stranding extends from the hepatic flexure through the rectum suggestive of a nonspecific proctocolitis. Colonic air-fluid levels are suggestive of associated diarrheal illness. No evidence of perforation or drainable fluid collection. 2. Extensive colonic diverticulosis without definite evidence of acute divert iculitis. 3. Prior hysterectomy. Loss of the fat plane between the colon and vaginal cuff may be secondary to aforementioned acute inflammatory changes. These findings however should be correlated clinically to exclude a subtle colovaginal fistula from chronic diverticular disease. 4. Appendectomy and cholecystectomy. 5. 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 Based on the large size of this aneurysm, a follow-up nonemergent vascular surgical consultation is recommended for consideration of possible elective endovascular embolization. ACT 112: Negative or not required by law. The above report was generated using voice recognition software. It may contain grammatical, syntax or spelling errors. Electronically signed by: Mariano Mo M.D. 08/03/2019 4:31 PM Dictated: 08/03/19 1614 Transcribed: 08/03/19 161 XR chest 1V portable HISTORY: 78 years-old Female SEPSIS acute sepsis COMPARISON: CT abdomen and pelvis of same day, chest radiograph 11/19/2017 TECHNIQUE: Portable AP view of the chest FINDINGS: Cardiac silhouette is mildly enlarged. Calcified plaque of the thoracic aorta. Mild right hemidiaphragmatic elevation. No pneumothorax, pleural effusion, airspace consolidation or overt pulmonary edema. Degenerative changes of the spine. Bilateral shoulder total joint arthroplasties. IMPRESSION: No acute process. ACT 112: Negative or not required by law. The above report was generated using voice recognition software. It may contain grammatical, syntax or spelling errors. Electronically signed by: Mariano Mo M.D. 08/03/2019 4:35 PM Dictated: 08/03/19 1634 Transcribed: 08/03/19 163 ECG Data Attestation: I personally reviewed and interpreted this ECG as follows: Indication: + abdominal pain Rate (beats per minute): 118 Additional Comments: EKG was obtained in the emergency department. My interpretation is sinus tachycardia at 118 bpm. There was no ectopy. Inferior Q waves are noted. Increased rate otherwise no specific change compared to a tracing done on November 19, 2017 Blood Pressure Blood Pressure Findings: Low blood pressure MDM Narrative The patient is a 78-year-old female who presented to the emergency department for an evaluation of diarrhea. The patient had abdominal pain last week and was treated with Flagyl for C. difficile colitis. The patient states that she stopped taking the medication because the prescription ran out and she finished the entire course. She started having worsening symptoms over the last 24 hours. The patient returns emergency department today with abdominal pain diarrhea as well as fever and tachycardia. The patient was treated with IV fluids and was reevaluated multiple times. She is also started on oral vancomycin for presumed C. difficile colitis. I discussed the patient's laboratory and radiographic studies with her. Given her findings I also discussed her case with the on-call [facility] hospitalist group. They have agreed to evaluate the patient in the emergency department for further management disposition. Impression & Plan Clostridium difficile colitis, Abdominal pain, Fever, Tachycardia Discharge Plan Visit Data Chief Complaint: Diarrhea ED Provider: Celso Morris Discharge Problem: Clostridium difficile colitis, Abdominal pain, Fever, Tachycardia Patient Disposition: Being Evaluated by Hospitalist Condition: Good Forms Stand Alone Forms: My [facility], Important Visit Information Prescriptions Prescriptions: No Action famotidine [Pepcid] 40 mg tablet 40 mg PO HS RF: 0 acetaminophen [Tylenol Extra Strength] 500 mg Tablet 1,000 mg PO TID PRN (Reason: Fever Or Pain) RF: 0 lisinopril [Zestril] 10 mg tablet 10 mg PO QAM RF: 0 levothyroxine [Synthroid] 112 mcg tablet 112 mcg PO DAILYBB RF: 0 rosuvastatin [Crestor] 5 mg tablet 5 mg PO HS RF: 0 Referrals Referrals: Paul Quinonez MD [Primary Care Provider] - Discharge Problem: Abdominal pain Qualifiers: Abdominal location: generalized Qualified Code(s): R10.84 - Generalized abdominal pain Fever Qualifiers: Fever type: unspecified Qualified Code(s): R50.9 - Fever, unspecified
[2019-08-03 15:50] LABS: Hematocrit (blood only) 38.8 % (37-47); Hemoglobin 12.8 g/dL (12.0-16.0); Mean Corpuscular Hemoglobin 28.9 pg (25-34); Mean Corpuscular Volume 87.6 fL (80-100); Mean Platelet Volume 9.1 fL (7.4-10.4); Platelet Count 310 K/uL (130-400); RDW Coefficient of Variation 13.9 % (11.5-14.5); RDW Standard Deviation 44.8 fL (36.4-46.3); Red Blood Count 4.43 M/uL (4.2-5.4); White Blood Count 23.33 K/uL (4.8-10.8)
[2019-08-03] MEDS ORDERED: IOVERSOL 100ml IV PRN (15:59)
[2019-08-03 16:02] LABS: INR 1.1 (0.9-1.1); Partial Thromboplastin Time 28.7 Seconds (21.0-31.0); Prothrombin Time 11.4 Seconds (9.0-12.0)
[2019-08-03 16:05] LABS: iSTAT Creatinine 0.8 mg/dl (0.6-1.3); iSTAT Hemoglobin 13.3 g/dl (12.0-16.0); iSTAT Ionized Calcium 1.15 mmol/l (1.12-1.32)
[2019-08-03 16:08] LABS: Alanine Aminotransferase 22 U/L (12-78); Albumin Level 3.4 gm/dl (3.4-5.0); Aspartate Aminotransferase 17 U/L (15-37); Blood Urea Nitrogen 16 mg/dl (7-18); Calcium 9.2 mg/dl (8.5-10.1); Carbon Dioxide 24 mmol/L (21-32); Chloride 102 mmol/L (98-107); Creatinine Clr Calc Pharmacy 47.6 ml/min; Est GFR (African American) 65.3; Est GFR (Non-African American) 56.3; Glucose 138 mg/dl (70-99); Magnesium 1.6 mg/dl (1.8-2.4); Sodium 136 mmol/L (136-145)
[2019-08-03 16:12] LABS: Basophils # (auto) 0.06 K/uL (0-0.2); Basophils % (auto) 0.3 %; Immature Granulocytes # (auto) 0.08 K/uL (0.00-0.02); Immature Granulocytes % (auto) 0.3 %; Lymphocytes # (auto) 0.96 K/uL (1.2-3.4); Lymphocytes % (auto) 4.1 %; Monocytes # (auto) 1.35 K/uL (0.11-0.59); Monocytes % (auto) 5.8 %; Neutrophils # (auto) 20.88 K/uL (1.4-6.5); Neutrophils % (auto) 89.5 %
[2019-08-03 16:13] LABS: Albumin Globulin Ratio 0.9 (0.9-2); Alkaline Phosphatase 62 U/L (45-117); Bilirubin,Total 0.4 mg/dl (0.2-1); Globulin 3.9 gm/dl (2.5-4.0); Total Protein 7.3 gm/dl (6.4-8.2); Troponin I < 0.015 ng/ml (0-0.045)
[2019-08-03] MEDS ORDERED: MAGNESIUM SULFATE / D5W 1 GM/100 ML BAG IV ONE (16:14)
--- NOTE | 2019-08-03 16:32 | CT Scan Report ---
ABDOMEN AND PELVIS CT WITH IV CONTRAST CT DOSE: 737.51 mGycm HISTORY: Acute generalized abdominal pain with fever pain and fever TECHNIQUE: Multiaxial CT images of the abdomen and pelvis were performed following the IV administrat ion of 90 cc of Optiray 320, A dose lowering technique was utilized adhering to the principles of [place]. COMPARISON STUDY: CT abdomen and pelvis 09/27/2015, MRI lumbar spine 07/04/2019. FINDINGS: Clear lung bases. No pneumatosis or pneumoperitoneum. Imaged inferior cardiac chambers are unremarkab le. Coronary artery calcifications. 2.3 x 1.9 x 2.1 cm ovoid hyperdense structure adjacent to the spl enic hilum previously measured 2.0 cm on study from 2016. Moderate generalized pancreatic atrophy. Ch olecystectomy. Adrenal glands and liver appear unremarkable. Patency of the hepatic and portal veins. Mild nonspecific bilateral perinephric stranding. There are a few small left-sided renal sinus cysts noted. No renal or ureteral calculi or obstructive uropathy. Partial distention of the urinary bladde r with mild wall thickening. Hysterectomy. Extensive calcified plaque of the abdominal aorta without aneurysm. Unremarkable IVC. No adenopathy. Small duodenal diverticulum. No small bowel obstruction. Scattered air-fluid levels throughout the co nicholas. Circumferential wall thickening of the colon with pericolonic stranding extends from the hepatic flexure through the sigmoid and rectum. Sigmoid diverticulosis. Prominent lymph nodes of the sigmoid mesocolon. There is loss of the normal fat plane between the inflamed sigmoid colon and the vaginal cuff with air seen within the vaginal cuff. No drainable fluid collection or perforation. Prior appen dectomy. Breast parenchyma and soft tissues are unremarkable. Multiple posterior disc osteophyte comp lata formations are noted with advanced facet arthropathy. Severe central canal stenosis is noted at L 3-L4. Large posterior disc osteophyte complex at L1-L2 results in at least moderate central canal hue nosis. Multilevel central canal and foraminal narrowing. Degenerative changes of the spine, pelvis an d hips. IMPRESSION: 1. Wall thickening with pericolonic stranding extends from the hepatic flexure through the rectum sug gestive of a nonspecific proctocolitis. Colonic air-fluid levels are suggestive of associated diarrhe al illness. No evidence of perforation or drainable fluid collection. 2. Extensive colonic diverticulosis without definite evidence of acute diverticulitis. 3. Prior hysterectomy. Loss of the fat plane between the colon and vaginal cuff may be secondary to a forementioned acute inflammatory changes. These findings however should be correlated clinically to e xclude a subtle colovaginal fistula from chronic diverticular disease. 4. Appendectomy and cholecystectomy. 5. 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 Bas ed on the large size of this aneurysm, a follow-up nonemergent vascular surgical consultation is robert mmended for consideration of possible elective endovascular embolization. ACT 112: Negative or not required by law. The above report was generated using voice recognition software. It may contain grammatical, syntax o r spelling errors. Electronically signed by: Mariano Mo M.D. 08/03/2019 4:31 PM
--- NOTE | 2019-08-03 16:36 | XRay Report ---
XR chest 1V portable HISTORY: 78 years-old Female SEPSIS acute sepsis COMPARISON: CT abdomen and pelvis of same day, chest radiograph 11/19/2017 TECHNIQUE: Portable AP view of the chest FINDINGS: Cardiac silhouette is mildly enlarged. Calcified plaque of the thoracic aorta. Mild right hemidiaphra gmatic elevation. No pneumothorax, pleural effusion, airspace consolidation or overt pulmonary edema. Degenerative changes of the spine. Bilateral shoulder total joint arthroplasties. IMPRESSION: No acute process. ACT 112: Negative or not required by law. The above report was generated using voice recognition software. It may contain grammatical, syntax o r spelling errors. Electronically signed by: Mariano Mo M.D. 08/03/2019 4:35 PM
[2019-08-03 17:20] LABS: Appearance Urine Clear (Clear); Bilirubin Urine Negative (Negative); Blood Urine Negative (Negative); Color Urine Yellow; Glucose Urine UA Negative (Negative); Ketones Urine Negative (Negative); Leukocyte Esterase Urine Negative (Negative); Nitrite Urine Negative (Negative); Protein Urine Negative (Negative); Specific Gravity Urine 1.036 (1.000-1.030); Urobilinogen Urine Negative (Negative)
--- NOTE | 2019-08-03 18:38 | Electrocardiogram Report ---
Test Reason : Blood Pressure : / mmHG Vent. Rate : 118 BPM Atrial Rate : 118 BPM P-R Int : 156 ms QRS Dur : 072 ms QT Int : 314 ms P-R-T Axes : 043 054 050 degrees QTc Int : 440 ms Sinus tachycardia Otherwise normal ECG When compared with ECG of 19-NOV-2017 05:38, No significant change was found Confirmed by Ramiro Padgett ([id number]) on 08/03/2019 6:38:16 PM Referred By: Confirmed By:Tucker Padgett
[2019-08-03] MEDS ORDERED: VANCOMYCIN HCL 250 MG/5 ML SOLN PO STA (19:10)
[2019-08-03] MEDS ORDERED: RASPBERRY SYRUP 5 ML UDP PO STA (19:10)
[2019-08-03 19:51] LABS: Cdiff Antigen Positive
[2019-08-03 19:52] LABS: Cdiff Toxin A+B Positive Cdiff Toxin (Negative)
--- NOTE | 2019-08-03 20:00 | History & Physical Report ---
Date of Service August 03, 2019 Assessment & Plan (1) Severe sepsis: SIRS plus lactic acid elevation secondary to C. difficile colitis Suboptimal outpatient treatment with Flagyl course hypertension, BP on the lower side hyperlipidemia on statin Rx hypothyroidism, TSH noted to be low Enlarging splenic artery aneurysm incidental finding on CT Medical telemetry IVF, follow lactic acid Oral vancomycin course GI consult in a.m. if without improvement check other TFTs, levothyroxine may need dose adjustment Outpatient vascular surgery consult for splenic artery aneurysm DVT prophylaxis per Lovenox subcu Full code Patient's requesting updates from providers. Mr. Fan Vasquez, contact #[phone]. Text document was generated using LIA voice recognition software. It may contain grammatical or spelling errors. Kindly contact undersigned for clarification of any documentation item in question. History of Present Illness Chief Complaint: Abdominal pain, diarrhea Primary Care Provider: Paul Quinonez MD History obtained from patient, family, and records. Medical history significant for hypertension, hyperlipidemia, hypothyroidism, osteoarthritis, recent C. difficile status post Flagyl Rx. Last month, patient seen at PCPs office for cough, chest congestion symptoms. Patient prescribed Augmentin for complicated bronchitis. Symptoms improved. 3 weeks ago, patient noted achy abdominal pain with mucoid loose stools. No fever, no chills. Patient seen at PCPs office and was prescribed Cipro and Flagyl for diarrhea symptoms. Stool C. difficile later found to be positive. Patient told to stop Cipro and to extend Flagyl course. Symptoms resolved. Last night patient noted achy lower abdominal pain with nausea, no emesis, low- grade fever at home. Mucoid loose stools, nonbloody. No chest pain, no S OB. At the ER, patient received oral vancomycin for C. difficile. 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 Allergies Allergy/AdvReac Type Severity Reaction Status Date / Time No Known Allergies Allergy Unknown Verified 08/03/19 17:04 Home Medications Home Medications Medication Instructions Recorded Confirmed Type acetaminophen [Tylenol Extra 1,000 mg PO TID PRN 08/03/19 08/03/19 History Strength] famotidine [Pepcid] 40 mg PO HS 08/03/19 08/03/19 History levothyroxine [Synthroid] 112 mcg PO DAILYBB 08/03/19 08/03/19 History lisinopril [Zestril] 10 mg PO QAM 08/03/19 08/03/19 History rosuvastatin [Crestor] 5 mg PO HS 08/03/19 08/03/19 History Past Med/Surg History Medical History Sensorineural hearing loss (SNHL) of both ears Surgical History History of elbow surgery left-fracture repair History of eye surgery History of hysterectomy 1970 History of shoulder replacement bilateral Family History Father No significant family history Mother No significant family history Other No family history of bleeding disorder Social History marital status: current occupational status: retired Feels Safe at Home: Yes Smoking Status: Never smoker Second Hand Exposure: No ; Hx Alcohol Use: No Hx Substance Use: No Review of Systems Review of Systems: As per HPI, all 10 systems reviewed, all other ROS negative Physical Exam Physical Exam: GENERAL: Slightly uncomfortable, anxious, no respiratory distress SKIN: Normal color, warm HEENT: [place] palpebral conjunctivae, no ptosis, dry buccal mucosa NECK : Supple, no tenderness CHEST : CTA, no tenderness HEART : RRR, no obvious murmurs ABDOMEN: Some distention, hypogastric tenderness EXTREMITIES : Minimal LE swelling, no LE tenderness, no other conspicuous deformities noted NEUROLOGIC : Coherent, no facial asymmetry, no other gross focality Results & Data Vital Signs (Past 12 Hours) Vital Signs Temp Pulse Resp BP Pulse Ox 08/03/19 18:50 92 H 17 99 08/03/19 18:45 86 13 106/58 L 99 08/03/19 18:40 86 17 99 08/03/19 18:32 99 H 14 100 08/03/19 18:31 100 H 20 99/56 L 93 08/03/19 18:30 97 H 17 96 03/22/20 18:20 90 15 96 08/03/19 18:15 90 21 115/56 L 98 08/03/19 18:10 88 20 97 08/03/19 18:00 92 H 17 115/57 L 97 08/03/19 17:55 36.9 C 08/03/19 17:54 20 98 08/03/19 17:45 126/90 08/03/19 17:40 92 H 16 98 08/03/19 17:31 91 H 16 96 08/03/19 17:30 90 14 106/56 L 96 08/03/19 17:20 94 H 14 95 08/03/19 17:15 99 H 16 112/58 L 96 08/03/19 17:11 106 H 24 97 08/03/19 17:01 100 H 16 08/03/19 17:00 93 H 16 112/56 L 95 08/03/19 16:50 95 H 19 96 08/03/19 16:45 96 H 18 110/57 L 95 08/03/19 16:40 97 H 21 96 08/03/19 16:31 101 H 13 96 08/03/19 16:30 100 H 15 110/56 L 97 08/03/19 16:20 17 93 08/03/19 16:16 88 18 96 08/03/19 16:15 78 16 117/58 L 96 08/03/19 16:14 92 H 18 116/54 L 96 08/03/19 16:12 95 08/03/19 15:50 108 H 16 96 08/03/19 15:45 110 H 12 123/57 L 97 08/03/19 15:40 117 H 18 97 08/03/19 15:34 118 H 14 128/61 93 08/03/19 15:31 118 H 15 95 08/03/19 15:30 121 H 18 94 08/03/19 15:29 120 H 17 106/87 95 08/03/19 15:20 121 H 17 08/03/19 15:10 124 H 21 08/03/19 15:00 124 H 15 08/03/19 14:56 37.1 C 129 H 20 162/70 H 97 08/03/19 14:55 126 H 20 08/03/19 14:54 37.5 C 97 08/03/19 14:47 127 H 20 162/70 H Laboratory Results Laboratory Results WBC 23.33 K/uL (4.8-10.8) H 08/03/19 15:14 RBC 4.43 M/uL (4.2-5.4) 08/03/19 15:14 Hgb 12.8 g/dL (12.0-16.0) 08/03/19 15:14 POC Hgb 13.3 g/dl (12.0-16.0) 08/03/19 15:49 Hct 38.8 % (37-47) 08/03/19 15:14 POC Hct 39 % (37-47) 08/03/19 15:49 MCV 87.6 fL (80-100) 08/03/19 15:14 MCH 28.9 pg (25-34) 08/03/19 15:14 MCHC 33.0 g/dL (32-36) 08/03/19 15:14 RDW Std Deviation 44.8 fL (36.4-46.3) 08/03/19 15:14 RDW Coeff of Girma 13.9 % (11.5-14.5) 08/03/19 15:14 Plt Count 310 K/uL (130-400) 08/03/19 15:14 MPV 9.1 fL (7.4-10.4) 08/03/19 15:14 Immature Gran % (Auto) 0.3 % 08/03/19 15:14 Neut % (Auto) 89.5 % 08/03/19 15:14 Lymph % (Auto) 4.1 % 08/03/19 15:14 [place] % (Auto) 5.8 % 08/03/19 15:14 Eos % (Auto) 0.0 % 08/03/19 15:14 Baso % (Auto) 0.3 % 08/03/19 15:14 Immature Gran # (Auto) 0.08 K/uL (0.00-0.02) H 08/03/19 15:14 Neut # (Auto) 20.88 K/uL (1.4-6.5) H 08/03/19 15:14 Lymph # (Auto) 0.96 K/uL (1.2-3.4) L 08/03/19 15:14 [place] # (Auto) 1.35 K/uL (0.11-0.59) H 08/03/19 15:14 Eos # (Auto) 0.00 K/uL (0-0.5) 08/03/19 15:14 Baso # (Auto) 0.06 K/uL (0-0.2) 08/03/19 15:14 PT 11.4 Seconds (9.0-12.0) 08/03/19 15:14 INR 1.1 (0.9-1.1) 08/03/19 15:14 APTT 28.7 Seconds (21.0-31.0) 08/03/19 15:14 PTT Ratio 1.0 08/03/19 15:14 POC Sodium 135 mmol/L (135-144) 08/03/19 15:49 Sodium 136 mmol/L (136-145) 08/03/19 15:14 POC Potassium 4.0 mmol/L (3.3-5.0) 08/03/19 15:49 Potassium 4.0 mmol/L (3.5-5.1) 08/03/19 15:14 POC Chloride 99 mmol/L (101-112) L 08/03/19 15:49 Chloride 102 mmol/L (98-107) 08/03/19 15:14 Carbon Dioxide 24 mmol/L (21-32) 08/03/19 15:14 POC Total CO2 24 mEq/l (24-31) 08/03/19 15:49 Anion Gap 10.0 (3-11) 08/03/19 15:14 POC Anion Gap 17.0 mmol/L (16-25) 08/03/19 15:49 POC BUN 17 mg/dl (7-18) 08/03/19 15:49 BUN 16 mg/dl (7-18) 08/03/19 15:14 Creatinine 0.97 mg/dl (0.6-1.2) 08/03/19 15:14 POC Creatinine 0.8 mg/dl (0.6-1.3) 08/03/19 15:49 Est Cr Clr Drug Dosing 47.6 ml/min 08/03/19 15:14 Est GFR ( Amer) 65.3 08/03/19 15:14 Est GFR (Non-Af Amer) 56.3 08/03/19 15:14 BUN/Creatinine Ratio 17.0 (10-20) 08/03/19 15:14 Glucose 138 mg/dl (70-99) H 08/03/19 15:14 POC Glucose (other) 138 mg/dl (70-99) H 08/03/19 15:49 Lactate 1.3 mmol/L (0.4-2.0) 08/03/19 17:44 Calcium 9.2 mg/dl (8.5-10.1) 08/03/19 15:14 POC Ioniz Calcium Surya 1.15 mmol/l (1.12-1.32) 08/03/19 15:49 Magnesium 1.6 mg/dl (1.8-2.4) L 08/03/19 15:14 Total Bilirubin 0.4 mg/dl (0.2-1) 08/03/19 15:14 AST 17 U/L (15-37) 08/03/19 15:14 ALT 22 U/L (12-78) 08/03/19 15:14 Alkaline Phosphatase 62 U/L (45-117) 08/03/19 15:14 Troponin I < 0.015 ng/ml (0-0.045) 08/03/19 15:14 Total Protein 7.3 gm/dl (6.4-8.2) 08/03/19 15:14 Albumin 3.4 gm/dl (3.4-5.0) 08/03/19 15:14 Globulin 3.9 gm/dl (2.5-4.0) 08/03/19 15:14 Albumin/Globulin Ratio 0.9 (0.9-2) 08/03/19 15:14 Procalcitonin 0.11 ng/ml (0-0.5) 08/03/19 15:14 TSH 0.255 uIu/ml (0.300-4.500) L 08/03/19 15:14 Urine Color Yellow 08/03/19 17:10 Urine Appearance Clear (Clear) 08/03/19 17:10 Urine pH 5.0 (4.5-7.5) 08/03/19 17:10 Ur Specific [place] 1.036 (1.000-1.030) H 08/03/19 17:10 Urine Protein Negative (Negative) 08/03/19 17:10 Urine Glucose (UA) Negative (Negative) 08/03/19 17:10 Urine Ketones Negative (Negative) 08/03/19 17:10 Urine Blood Negative (Negative) 08/03/19 17:10 Urine Nitrite Negative (Negative) 08/03/19 17:10 Urine Bilirubin Negative (Negative) 08/03/19 17:10 Urine Urobilinogen Negative (Negative) 08/03/19 17:10 Ur Leukocyte Esterase Negative (Negative) 08/03/19 17:10 Stl C. diff Tox B Gene Positive Cdiff Gene (Neg) H 08/03/19 17:50 Stl C.difficile Tox A&B Positive Cdiff Toxin (Negative) A* 08/03/19 17:[address] abdomen pelvis: 1. Wall thickening with pericolonic stranding extends from the hepatic flexure through the rectum suggestive of a nonspecific proctocolitis. Colonic air-fluid levels are suggestive of associated diarrheal illness. No evidence of perforation or drainable fluid collection. 2. Extensive colonic diverticulosis without definite evidence of acute diverticulitis. 3. Prior hysterectomy. Loss of the fat plane between the colon and vaginal cuff may be secondary to aforementioned acute inflammatory changes. These findings however should be correlated clinically to exclude a subtle colovaginal fistula from chronic diverticular disease. 4. Appendectomy and cholecystectomy. 5. 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 Based on the large size of this aneurysm, a follow-up nonemergent vascular surgical consultation is recommended for consideration of possible elective endovascular embolization. Chest x-ray : No acute process EKG as per my interpretation : Rate 120, sinus tachycardia, normal axis, no ischemia
[2019-08-03] MEDS ORDERED: metroNIDAZOLE 500 MG/100 ML BAG IV STA (20:08)
[2019-08-03] MEDS ORDERED: PROMETHAZINE HCL INJ 25 MG/ML 1 ML VIAL ONE (20:27)
[2019-08-03] MEDS ORDERED: ACETAMINOPHEN 325 MG TAB PO PRN (21:19)
[2019-08-03] MEDS ORDERED: LORazepam 0.5 MG TAB PO PRN (21:19)
[2019-08-03] MEDS ORDERED: TRAMADOL HCL 50 MG TABLET PO PRN (21:19)
[2019-08-03] MEDS ORDERED: NORMOSOL-R 1,000 ML IV ONE (21:19)
[2019-08-03] MEDS ORDERED: KETOROLAC TROMETHAMINE 15 MG/ML VIAL IV PRN (21:19)
[2019-08-03] MEDS ORDERED: PROMETHAZINE HCL 12.5 MG in SODIUM CHLORIDE 0.9% 50 ML IV PRN (21:19)
[2019-08-03] MEDS: ROSUVASTATIN CALCIUM 5 MG TAB PO SCH (21:53)
[2019-08-03] MEDS: FAMOTIDINE 40 MG TABLET PO SCH (21:54)
[2019-08-03] MEDS: MAGNESIUM SULFATE / D5W 1 GM/100 ML BAG IV SCH ×2 (22:11→23:19)
[2019-08-04] MEDS: METOCLOPRAMIDE HCL INJ 5 MG/ML 2 ML VIAL IV PRN ×3 (00:16→20:58)
[2019-08-04] MEDS: VANCOMYCIN HCL 125 MG/2.5ML SOLN PO SCH ×5 (00:21→23:57)
[2019-08-04] MEDS: RASPBERRY SYRUP 5 ML UDP PO SCH ×5 (00:21→23:56)
[2019-08-04] MEDS: LEVOTHYROXINE SODIUM 112 MCG TABLET PO SCH (06:07)
[2019-08-04 06:20] LABS: Basophils # (auto) 0.04 K/uL (0-0.2); Basophils % (auto) 0.3 %; Eosinophils # (auto) 0.04 K/uL (0-0.5); Eosinophils % (auto) 0.3 %; Hematocrit (blood only) 33.7 % (37-47); Immature Granulocytes # (auto) 0.03 K/uL (0.00-0.02); Immature Granulocytes % (auto) 0.2 %; Lymphocytes # (auto) 2.76 K/uL (1.2-3.4); Lymphocytes % (auto) 18.4 %; Mean Corpuscular Hemoglobin 28.7 pg (25-34); Mean Corpuscular Hgb Conc 32.6 g/dL (32-36); Mean Platelet Volume 8.8 fL (7.4-10.4); Monocytes # (auto) 1.13 K/uL (0.11-0.59); Monocytes % (auto) 7.5 %; Neutrophils # (auto) 11.02 K/uL (1.4-6.5); Neutrophils % (auto) 73.3 %; Platelet Count 268 K/uL (130-400); RDW Coefficient of Variation 14.2 % (11.5-14.5); Red Blood Count 3.83 M/uL (4.2-5.4); White Blood Count 15.02 K/uL (4.8-10.8)
[2019-08-04 07:03] LABS: BUN Creatinine Ratio 16.8 (10-20); Calcium 8.4 mg/dl (8.5-10.1); Creatinine Clr Calc Pharmacy 68.7 ml/min; Est GFR (African American) 96.9; Est GFR (Non-African American) 83.6
[2019-08-04 08:00] LABS: Magnesium 2.4 mg/dl (1.8-2.4); Potassium 3.2 mmol/L (3.5-5.1)
[2019-08-04] MEDS ORDERED: POTASSIUM CHLORIDE 20 MEQ TABCR PO STA (09:07)
[2019-08-04] MEDS: ENOXAPARIN INJ 30 MG/0.3 ML SYR SQ SCH (09:26)
[2019-08-04] MEDS: lisinopriL 10 MG TAB PO SCH (09:36)
--- NOTE | 2019-08-04 11:43 | Hospitalist Progress Note ---
Date of Service August 04, 2019 Assessment & Plan (1) Severe sepsis: SIRS plus lactic acid elevation secondary to C. difficile colitis Suboptimal outpatient treatment with Flagyl course CT of the abdomen and pelvis did show nonspecific proctocolitis and stool for C. difficile was positive for C. 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 Based on the large size of this aneurysm, a follow- up nonemergent vascular surgical consultation is recommended for consideration of possible elective endovascular embolization. We need to have an outpatient appointment with vascular surgeon (2) Clostridium difficile colitis: Outpatient failure with Flagyl Started on oral vancomycin The condition gets worse will need GI evaluation (3) Hypertension: Controlled now and continue current medication (4) Hypothyroidism: (5) Lumbar stenosis: Term supplement symptoms DVT prophylaxis Subcu hep CODE STATUS Full Patient's requesting updates from providers. Mr. Fan Vasquez, contact #[phone]. (6) Sensorineural hearing loss (SNHL) of both ears: Admission and Anticipated Discharge Date Admission Date: August 03, 2019 Subjective The patient was seen and examined in medical telemetry unit She is a 78-year-old female significant past medical history of hypertension, hyperlipidemia, hypothyroidism, osteoarthritis with recent C. difficile infection and failed treatment on Flagyl Admitted with abdominal pain and diarrhea from PCPs office Noted to have nonspecific colitis on CT of the abdomen and stool for C. difficile toxin was positive She complains to have abdominal pain and diarrhea this morning Review of Systems Review of Systems: All systems reviewed and are unremarkable except as noted below Constitutional: + weakness and + anorexia Gastrointestinal: + abdominal pain, + nausea and + diarrhea/loose stools Physical Exam Physical Exam: Lying in bed with some distress due to abdominal pain and diarrhea Constitutional: well developed, well nourished, + acute distress (Due to abdominal pain and diarrhea), + ill appearing and + obese Eyes: PERRL, conjunctivae normal, anicteric sclerae ENMT: external ear and nose normal, oropharynx normal Neck: trachea midline, no thyromegaly Respiratory: Auscultation: lungs clear to auscultation bilaterally Cardiovascular: Rate/Rhythm: regular rate and regular rhythm Heart Sounds: no murmur Gastrointestinal (Abdomen): Inspection/Auscultation: abdomen normal to inspection and normal bowel sounds Percussion/Palpation: + abdomen tender (Lower quadrant) and abdomen soft Musculoskeletal: No acute arthritis in any joints Neurologic: moves all extremities; no focal motor deficits Results & Data ([facility]) Vital Signs (Past 12 Hours) Vital Signs Temp Pulse Pulse Resp BP Pulse Ox 08/04/19 11:11 36.7 C 97 H 20 134/70 97 08/04/19 07:47 36.8 C 86 20 113/68 96 08/04/19 06:50 97 H 08/04/19 06:29 36.7 C 08/04/19 03:44 38.3 C H 97 H 18 114/57 L 96 08/04/19 01:03 102 H Laboratory Results Short CBC 08/03/19 08/04/19 Range/Units 15:14 06:09 WBC 23.33 H 15.02 H (4.8-10.8) K/uL Hgb 12.8 11.0 L (12.0-16.0) g/dL Hct 38.8 33.7 L (37-47) % Plt Count 310 268 (130-400) K/uL BMP 08/03/19 08/04/19 08/04/19 15:14 06:09 07:24 Sodium 136 139 Potassium 4.0 3.2 L D Chloride 102 108 H Carbon Dioxide 24 23 BUN 16 12 Creatinine 0.97 0.70 Glucose 138 H 118 H Calcium 9.2 8.4 L Cardiac Enzymes 08/03/19 Range/Units 15:14 Troponin I < 0.015 (0-0.045) ng/ml Liver Function 08/03/19 Range/Units 15:14 Total Bilirubin 0.4 (0.2-1) mg/dl AST 17 (15-37) U/L ALT 22 (12-78) U/L Alkaline Phosphatase 62 (45-117) U/L Albumin 3.4 (3.4-5.0) gm/dl Urine 08/03/19 Range/Units 17:10 Urine Color Yellow Urine Appearance Clear (Clear) Urine pH 5.0 (4.5-7.5) Ur Specific [place] 1.036 H (1.000-1.030) Urine Protein Negative (Negative) Urine Glucose (UA) Negative (Negative) Medications Administered Current Inpatient Medications Acetaminophen (Tylenol) 650 mg PO Q4H PRN PRN Reason: Pain or Fever Stop: 09/02/19 21:18 Last Admin: 08/04/19 03:38 Dose: 650 mg Documented by: Enoxaparin Sodium (Lovenox) 30 mg SQ QAM [facility] Stop: 09/03/19 08:59 Last Admin: 08/04/19 09:26 Dose: 30 mg Documented by: Famotidine (Pepcid) 40 mg PO HS [facility] Stop: 09/02/19 21:18 Last Admin: 08/03/19 21:54 Dose: Not Given Documented by: Promethazine HCl 12.5 mg/ (Sodium Chloride) 50.5 mls @ 202 mls/hr IV Q6H PRN PRN Reason: Nausea And Vomiting Stop: 09/02/19 21:18 Last Infusion: 08/04/19 09:40 Dose: Infused Documented by: Ketorolac Tromethamine (Toradol) 15 mg IV Q6H PRN PRN Reason: Pain Stop: 08/08/19 21:18 Levothyroxine Sodium (Synthroid) 112 mcg PO DAILYBB [facility] Stop: 09/03/19 06:29 Last Admin: 08/04/19 06:07 Dose: 112 mcg Documented by: Lisinopril (Zestril) 10 mg PO QAM [facility] Stop: 09/03/19 08:59 Last Admin: 08/04/19 09:36 Dose: 10 mg Documented by: Lorazepam (Ativan) 0.25 mg PO HS PRN PRN Reason: Insomnia Stop: 09/02/19 21:18 Metoclopramide HCl (Reglan) 5 mg IV Q6H PRN PRN Reason: nv Stop: 09/02/19 21:56 Last Admin: 08/04/19 00:16 Dose: 5 mg Documented by: Raspberry (Raspberry) 5 ml PO Q6 [facility] Stop: 08/18/19 00:00 Last Admin: 08/04/19 06:07 Dose: 5 ml Documented by: Rosuvastatin Calcium (Crestor) 5 mg PO HS [facility] Stop: 09/02/19 21:18 Last Admin: 08/03/19 21:53 Dose: Not Given Documented by: Tramadol HCl (Ultram) 25 - 50 mg PO Q4H PRN PRN Reason: Pain Stop: 09/02/19 21:18 Vancomycin HCl (Vancomycin Hcl) 125 mg PO Q6 [facility]; Protocol Stop: 08/14/19 00:00 Last Admin: 08/04/19 06:07 Dose: 125 mg Documented by:
[2019-08-04] MEDS: FAMOTIDINE 40 MG TABLET PO SCH (20:58)
[2019-08-04] MEDS: ROSUVASTATIN CALCIUM 5 MG TAB PO SCH (20:58)
[2019-08-05] MEDS: RASPBERRY SYRUP 5 ML UDP PO SCH ×3 (05:41→18:03)
[2019-08-05] MEDS: VANCOMYCIN HCL 125 MG/2.5ML SOLN PO SCH ×3 (05:41→18:02)
[2019-08-05 05:42] LABS: Basophils # (auto) 0.06 K/uL (0-0.2); Basophils % (auto) 0.5 %; Eosinophils # (auto) 0.29 K/uL (0-0.5); Eosinophils % (auto) 2.6 %; Hematocrit (blood only) 32.5 % (37-47); Hemoglobin 10.5 g/dL (12.0-16.0); Immature Granulocytes # (auto) 0.02 K/uL (0.00-0.02); Immature Granulocytes % (auto) 0.2 %; Lymphocytes # (auto) 2.22 K/uL (1.2-3.4); Lymphocytes % (auto) 19.7 %; Mean Corpuscular Hgb Conc 32.3 g/dL (32-36); Mean Corpuscular Volume 86.7 fL (80-100); Mean Platelet Volume 8.8 fL (7.4-10.4); Monocytes # (auto) 1.14 K/uL (0.11-0.59); Monocytes % (auto) 10.1 %; Neutrophils # (auto) 7.54 K/uL (1.4-6.5); Neutrophils % (auto) 66.9 %; Platelet Count 221 K/uL (130-400); RDW Standard Deviation 44.8 fL (36.4-46.3); Red Blood Count 3.75 M/uL (4.2-5.4); White Blood Count 11.27 K/uL (4.8-10.8)
[2019-08-05] MEDS: LEVOTHYROXINE SODIUM 112 MCG TABLET PO SCH (05:42)
[2019-08-05 06:11] LABS: BUN Creatinine Ratio 8.9 (10-20); Calcium 8.6 mg/dl (8.5-10.1); Creatinine Clr Calc Pharmacy 64.7 ml/min; Est GFR (African American) 92.1; Est GFR (Non-African American) 79.4; Phosphorus 1.8 mg/dl (2.5-4.9); Potassium 4.1 mmol/L (3.5-5.1)
[2019-08-05] MEDS ORDERED: SODIUM PHOSPHATE 3 MMOL/1 ML 5 ML VIAL IV ONE (08:17)
[2019-08-05] MEDS ORDERED: SODIUM PHOSPHATE 30 MMOL in SODIUM CHLORIDE 0.9% 500 ML IV ONE (08:30)
[2019-08-05] MEDS: lisinopriL 10 MG TAB PO SCH (08:54)
[2019-08-05] MEDS: ENOXAPARIN INJ 30 MG/0.3 ML SYR SQ SCH (08:54)
--- NOTE | 2019-08-05 12:24 | Hospitalist Progress Note ---
Date of Service August 05, 2019 Assessment & Plan (1) Severe sepsis: SIRS plus lactic acid elevation secondary to C. difficile colitis Suboptimal outpatient treatment with Flagyl course CT of the abdomen and pelvis did show nonspecific proctocolitis and stool for C. difficile was positive for C. 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 Based on the large size of this aneurysm, a follow- up nonemergent vascular surgical consultation is recommended for consideration of possible elective endovascular embolization. We need to have an outpatient appointment with vascular surgeon (2) Clostridium difficile colitis: Outpatient failure with Flagyl Started on oral vancomycin The condition gets worse will need GI evaluation Condition has been getting better we will continue vancomycin for a total of 14 days on discharge (3) Hypertension: Controlled now and continue current medication (4) Hypothyroidism: (5) Lumbar stenosis: Term supplement symptoms DVT prophylaxis Subcu hep CODE STATUS Full Patient's requesting updates from providers. Mr. Chavira Christina, contact #[phone]. Try to call Mr. Chavira and will try later to update him about Taniya (6) Sensorineural hearing loss (SNHL) of both ears: Admission and Anticipated Discharge Date Admission Date: August 03, 2019 Subjective The patient was seen and examined in medical telemetry unit She is a 78-year-old female significant past medical history of hypertension, hyperlipidemia, hypothyroidism, osteoarthritis with recent C. difficile infection and failed treatment on Flagyl Admitted with abdominal pain and diarrhea from PCPs office Noted to have nonspecific colitis on CT of the abdomen and stool for C. difficile toxin was positive She complains to have abdominal pain and diarrhea this morning 08/05/2019 The patient was seen and examined in medical telemetry unit She has been feeling better today Abdominal pain and diarrhea have decreased She has been ambulating around the hallway without any significant symptoms Review of Systems Review of Systems: All systems reviewed and are unremarkable except as noted below Constitutional: + weakness and + anorexia Gastrointestinal: + abdominal pain and + diarrhea/loose stools (Improving); no nausea Physical Exam Physical Exam: Ambulating around the hallway without significant symptoms Constitutional: well developed, well nourished, + ill appearing and + obese; no acute distress (Due to abdominal pain and diarrhea) Eyes: PERRL, conjunctivae normal, anicteric sclerae ENMT: external ear and nose normal, oropharynx normal Neck: trachea midline, no thyromegaly Respiratory: Auscultation: lungs clear to auscultation bilaterally Cardiovascular: Rate/Rhythm: regular rate and regular rhythm Heart Sounds: no murmur Gastrointestinal (Abdomen): Inspection/Auscultation: abdomen normal to inspection and normal bowel sounds Percussion/Palpation: + abdomen tender (Lower quadrant) and abdomen soft Neurologic: moves all extremities; no focal motor deficits Lymphatic: no cervical or axillary lymphadenopathy Results & Data ([facility]) Vital Signs (Past 12 Hours) Vital Signs Temp Pulse Pulse Resp BP BP Pulse Ox 08/05/19 11:23 36.6 C 76 18 102/55 L 94 08/05/19 09:49 96 08/05/19 07:23 36.7 C 71 20 105/48 L 97 08/05/19 07:12 70 08/05/19 03:59 36.8 C 79 18 127/71 96 Laboratory Results Short CBC 08/05/19 Range/Units 05:28 WBC 11.27 H (4.8-10.8) K/uL Hgb 10.5 L (12.0-16.0) g/dL Hct 32.5 L (37-47) % Plt Count 221 (130-400) K/uL BMP 08/05/19 05:28 Sodium 140 Potassium 4.1 D Chloride 111 H Carbon Dioxide 26 BUN 6 L D Creatinine 0.73 Glucose 95 Calcium 8.6 Medications Administered Current Inpatient Medications Acetaminophen (Tylenol) 650 mg PO Q4H PRN PRN Reason: Pain or Fever Stop: 09/02/19 21:18 Last Admin: 08/04/19 03:38 Dose: 650 mg Documented by: Enoxaparin Sodium (Lovenox) 30 mg SQ QAM [facility] Stop: 09/03/19 08:59 Last Admin: 08/05/19 08:54 Dose: 30 mg Documented by: Famotidine (Pepcid) 40 mg PO HS [facility] Stop: 09/02/19 21:18 Last Admin: 08/04/19 20:58 Dose: 40 mg Documented by: Promethazine HCl 12.5 mg/ (Sodium Chloride) 50.5 mls @ 202 mls/hr IV Q6H PRN PRN Reason: Nausea And Vomiting Stop: 09/02/19 21:18 Last Infusion: 08/04/19 09:40 Dose: Infused Documented by: Sodium Phosphate 30 mmol/ (Sodium Chloride) 510 mls @ 100 mls/hr IV 0830 ONE Stop: 08/05/19 13:35 Last Admin: 08/05/19 08:54 Dose: 100 mls/hr Documented by: Ketorolac Tromethamine (Toradol) 15 mg IV Q6H PRN PRN Reason: Pain Stop: 08/08/19 21:18 Levothyroxine Sodium (Synthroid) 112 mcg PO DAILYBB [facility] Stop: 09/03/19 06:29 Last Admin: 08/05/19 05:42 Dose: 112 mcg Documented by: Lisinopril (Zestril) 10 mg PO QAM [facility] Stop: 09/03/19 08:59 Last Admin: 08/05/19 08:54 Dose: 10 mg Documented by: Lorazepam (Ativan) 0.25 mg PO HS PRN PRN Reason: Insomnia Stop: 09/02/19 21:18 Metoclopramide HCl (Reglan) 5 mg IV Q6H PRN PRN Reason: nv Stop: 09/02/19 21:56 Last Admin: 08/04/19 20:58 Dose: 5 mg Documented by: Raspberry (Raspberry) 5 ml PO Q6 [facility] Stop: 08/18/19 00:00 Last Admin: 08/05/19 05:41 Dose: 5 ml Documented by: Rosuvastatin Calcium (Crestor) 5 mg PO HS [facility] Stop: 09/02/19 21:18 Last Admin: 08/04/19 20:58 Dose: 5 mg Documented by: Tramadol HCl (Ultram) 25 - 50 mg PO Q4H PRN PRN Reason: Pain Stop: 09/02/19 21:18 Vancomycin HCl (Vancomycin Hcl) 125 mg PO Q6 [facility]; Protocol Stop: 08/14/19 00:00 Last Admin: 08/05/19 05:41 Dose: 125 mg Documented by:
[2019-08-05] MEDS: ROSUVASTATIN CALCIUM 5 MG TAB PO SCH (20:27)
[2019-08-05] MEDS: FAMOTIDINE 40 MG TABLET PO SCH (20:27)
[2019-08-06] MEDS: VANCOMYCIN HCL 125 MG/2.5ML SOLN PO SCH ×3 (00:05→11:43)
[2019-08-06] MEDS: RASPBERRY SYRUP 5 ML UDP PO SCH ×3 (00:05→11:43)
[2019-08-06 05:47] LABS: Basophils # (auto) 0.06 K/uL (0-0.2); Basophils % (auto) 0.6 %; Eosinophils # (auto) 0.51 K/uL (0-0.5); Eosinophils % (auto) 5.4 %; Hematocrit (blood only) 32.6 % (37-47); Hemoglobin 10.8 g/dL (12.0-16.0); Immature Granulocytes # (auto) 0.01 K/uL (0.00-0.02); Immature Granulocytes % (auto) 0.1 %; Lymphocytes # (auto) 2.23 K/uL (1.2-3.4); Lymphocytes % (auto) 23.7 %; Mean Corpuscular Hemoglobin 28.6 pg (25-34); Mean Corpuscular Hgb Conc 33.1 g/dL (32-36); Mean Corpuscular Volume 86.2 fL (80-100); Mean Platelet Volume 8.9 fL (7.4-10.4); Monocytes # (auto) 1.08 K/uL (0.11-0.59); Monocytes % (auto) 11.5 %; Neutrophils % (auto) 58.7 %; Platelet Count 244 K/uL (130-400); RDW Coefficient of Variation 13.8 % (11.5-14.5); RDW Standard Deviation 43.4 fL (36.4-46.3); Red Blood Count 3.78 M/uL (4.2-5.4); White Blood Count 9.39 K/uL (4.8-10.8)
[2019-08-06] MEDS: LEVOTHYROXINE SODIUM 112 MCG TABLET PO SCH (06:13)
[2019-08-06 06:26] LABS: BUN Creatinine Ratio 10.3 (10-20); Calcium 8.5 mg/dl (8.5-10.1); Creatinine Clr Calc Pharmacy 65.8 ml/min; Est GFR (African American) 93.6; Est GFR (Non-African American) 80.8; Magnesium 1.7 mg/dl (1.8-2.4); Phosphorus 3.3 mg/dl (2.5-4.9); Potassium 3.2 mmol/L (3.5-5.1)
[2019-08-06] MEDS: ENOXAPARIN INJ 30 MG/0.3 ML SYR SQ SCH (08:22)
[2019-08-06] MEDS: lisinopriL 10 MG TAB PO SCH (08:22)
[2019-08-06] MEDS: MAGNESIUM SULFATE / D5W 1 GM/100 ML BAG IV SCH ×2 (09:18→10:33)
--- NOTE | 2019-08-06 11:05 | Discharge Summary ---
Date of Service August 06, 2019 Admission HPI Per Admitting Provider History obtained from patient, family, and records. Medical history significant for hypertension, hyperlipidemia, hypothyroidism, osteoarthritis, recent C. difficile status post Flagyl Rx. Last month, patient seen at PCPs office for cough, chest congestion symptoms. Patient prescribed Augmentin for complicated bronchitis. Symptoms improved. 3 weeks ago, patient noted achy abdominal pain with mucoid loose stools. No fever, no chills. Patient seen at PCPs office and was prescribed Cipro and Flagyl for diarrhea symptoms. Stool C. difficile later found to be positive. Patient told to stop Cipro and to extend Flagyl course. Symptoms resolved. Last night patient noted achy lower abdominal pain with nausea, no emesis, low- grade fever at home. Mucoid loose stools, nonbloody. No chest pain, no S OB. At the ER, patient received oral vancomycin for C. difficile. 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 Admission Exam Per Admitting Provider GENERAL: Slightly uncomfortable, anxious, no respiratory distress SKIN: Normal color, warm HEENT: [place] palpebral conjunctivae, no ptosis, dry buccal mucosa NECK : Supple, no tenderness CHEST : CTA, no tenderness HEART : RRR, no obvious murmurs ABDOMEN: Some distention, hypogastric tenderness EXTREMITIES : Minimal LE swelling, no LE tenderness, no other conspicuous deformities noted NEUROLOGIC : Coherent, no facial asymmetry, no other gross focality Principal Diagnosis Sepsis 2/2 clostridium difficile Hypomagnesemia Hypokalemia Discharge Data Allergies Allergy/AdvReac Type Severity Reaction Status Date / Time No Known Allergies Allergy Unknown Verified 08/03/19 17:04 Ordered Studies 08/03/19 14:54 CT abd pelvis IV con only Stat Hospital Course (1) Severe sepsis: (2) Clostridium difficile colitis: 78-year-old female presented with severe sepsis secondary to C. difficile colitis. She had received outpatient treatment with a course of Flagyl that was ineffective. She was admitted to the hospitalist service and started on oral vancomycin. By hospital day 2 her abdominal pain was decreasing and so was her diarrhea, and she was resuscitated from a sepsis standpoint. She was able to ambulate around the hallway and her diet was switched to regular. 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 Based on the larger size of his aneurysm a follow-up nonurgently with vascular surgery was recommended and this was discussed with the patient at time of discharge. The following day she was consistently tolerating p.o. without issue and diarrhea was improved. She was ambulating and mentating at baseline and oxygenating well on room air. She was hemodynamically stable and afebrile and had remained afebrile for the past 48 hours prior to discharge. On physical exam she had slight tenderness to the left lower quadrant but this was significantly improved. Abdomen exam did not reveal any evidence of distention or peritoneal signs. The patient was well-appearing and had a normal heart and lung exam. She was discharged in stable condition with close primary care follow-up recommended next week. Total Time Total Time Spent Total Time Spent (In Minutes): 60 Total Time Includes: Examination of the Patient, Discharge Planning, Medication Reconciliation and Communication With Other Providers Discharge Plan Discharge Items Patient Disposition: Home - Self-Care Reason For Visit: SEPSIS Discharge Diagnosis: Sepsis 2/2 clostridium difficile Hypomagnesemia Hypokalemia Condition on Discharge: Good Activity: Resume your previous activity Non-emergency contact: Primary Care Provider Call non-emergency contact if: you have any medication questions, your symptoms worsen, your pain is not controlled, your pain is worsening, your pain is unusual for you, your pain is concerning for you and you have a fever Follow-up/Referrals: Paul Quinonez MD [Primary Care Provider] - 08/11/19 10:10 am (08/11/2019 10:10 AM with Magnus Cohen DO [facility], [address] [place] [address] NOTE: The [facility] office is temporarily not accepting appointments; your follow up appointment is at [facility]. Please call should you need to reschedule. ) Diet: Regular Addtl Attending Provider Instructions: Please take all medications as instructed on discharge list below. It is recommended that you follow-up with your primary care provider within one week of discharge. Please note your appointment above is at the [facility] location because of limited appointment availability. A CT scan during the hospitalization revealed an incidental splenic artery aneurysm. This will require a nonurgent followup with a vascular surgeon. Your primary care physician may need to place a referral for this at follow-up. It was a pleasure taking care of you! Please call if you have any questions or problems. You can reach a [facility] Hospitalist on duty at [facility] 24 hours a day by calling [phone]. Take care of yourself. Misty Toussaint [facility] Pending Studies at Discharge: No Stand-Alone Forms: [facility], Smoking Cessation Medications and DC Order Prescriptions: New vancomycin 125 mg capsule 125 mg PO Q6H Qty: 48 RF: 0 ondansetron HCl [Zofran] 4 mg tablet 4 mg PO Q8H PRN (Reason: nausea and vomiting) Qty: 10 RF: 0 Continued famotidine [Pepcid] 40 mg tablet 40 mg PO HS RF: 0 acetaminophen [Tylenol Extra Strength] 500 mg Tablet 1,000 mg PO TID PRN (Reason: Fever Or Pain) RF: 0 lisinopril [Zestril] 10 mg tablet 10 mg PO QAM RF: 0 levothyroxine [Synthroid] 112 mcg tablet 112 mcg PO DAILYBB RF: 0 rosuvastatin [Crestor] 5 mg tablet 5 mg PO HS RF: 0 Discharge Orders: Discharge Order (Routine); Ordered 08/06/19 Ordered By: Misty Toussaint Admission Data Admit Date/Time: 08/03/19 20:05 Attending Provider: Misty Toussaint Admit Provider: Mansoor Floyd Primary Care Provider: Paul Quinonez Other Interventions: Discharge Summary Assessment (RN) Last Done: 08/06/19 12:36 DC Date/Time DO NOT enter until pt leaves facility: 08/06/19 13:50
[2019-08-06] MEDS ORDERED: POTASSIUM CHLORIDE 20 MEQ TABCR PO SCH (12:00)
== END 2019-08-06 13:50 | disposition home or self-care (01) | DRG 872 ==
LOC: ED 14:44 → 2W 20:05 → SUATTDRO 20:05 → 2W 20:48

== ENCOUNTER 2022-05-20 03:08 | Inpatient (IN) ==
[2022-05-20] MEDS ORDERED: ONDANSETRON INJ 2 MG/ML 2 ML VIAL IV STA (03:40)
[2022-05-20] MEDS ORDERED: SODIUM CHLORIDE 0.9% 500 ML IV ONE (03:40)
[2022-05-20] MEDS ORDERED: MoRPHine SULFATE 2 MG/ML CARP IV STA ×2 (03:41→05:15)
[2022-05-20 04:34] LABS: Albumin Globulin Ratio 1.4 (0.9-2); Albumin Level 4.2 gm/dl (3.4-5.0); BUN Creatinine Ratio 17.6 (10-20); Bilirubin,Total 0.5 mg/dl (0.2-1.0); Calcium 9.1 mg/dl (8.5-10.1); Creatinine Clr Calc Pharmacy 49.8 ml/min; Est GFR (African American) 69.1 ml/min; Est GFR (Non-African American) 59.6 ml/min; Globulin 3.1 gm/dl (2.5-4.0); Potassium 4.3 mmol/L (3.5-5.1); Total Protein 7.3 gm/dl (6.0-8.3)
[2022-05-20 04:55] LABS: Basophils # (auto) 0.09 K/uL (0-0.2); Basophils % (auto) 0.7 %; Eosinophils # (auto) 0.09 K/uL (0-0.50); Eosinophils % (auto) 0.7 %; Hemoglobin 12.1 g/dl (12.0-16.0); Immature Granulocytes # (auto) 0.07 K/uL (0.00-0.02); Immature Granulocytes % (auto) 0.5 %; Lymphocytes # (auto) 1.82 K/uL (1.2-3.4); Lymphocytes % (auto) 13.2 %; Mean Corpuscular Hemoglobin 28.3 pg (25.0-34.0); Mean Corpuscular Hgb Conc 32.7 g/dL (32.0-36.0); Mean Corpuscular Volume 86.7 fL (80.0-100.0); Mean Platelet Volume 8.5 fL (9.4-12.3); Monocytes # (auto) 1.09 K/uL (0.24-0.82); Monocytes % (auto) 7.9 %; Neutrophils # (auto) 10.59 K/uL (1.4-6.5); Platelet Count 324 K/uL (130-400); RDW Coefficient of Variation 12.2 % (11.5-14.5); RDW Standard Deviation 38.6 fL (36.4-46.3); Red Blood Count 4.27 M/uL (3.93-5.22); White Blood Count 13.75 K/ul (4.8-10.8)
[2022-05-20] MEDS ORDERED: PIPERACILLIN/TAZOBACTAM 4.5 GM/120 ML BAG IV ONE (05:32)
[2022-05-20] MEDS ORDERED: SODIUM CHLORIDE 0.9% 500 ML IV SCH (05:45)
[2022-05-20 05:58] LABS: Appearance Urine Clear (Clear); Bilirubin Urine Negative (Negative); Blood Urine Negative (Negative); Color Urine Yellow; Glucose Urine UA Negative (Negative); Ketones Urine Negative (Negative); Leukocyte Esterase Urine Negative (Negative); Nitrite Urine Negative (Negative); Protein Urine Negative (Negative); Urobilinogen Urine Negative (Negative)
[2022-05-20] MEDS ORDERED: HYDROmorphone INJ 0.5 MG/0.5 ML SYR IV STA (06:01)
[2022-05-20] MEDS ORDERED: diphenhydrAMINE 50 MG/ML VIAL IV STA (06:15)
--- NOTE | 2022-05-20 06:20 | Emergency Department Note ---
Impression & Plan Sigmoid diverticulitis, Intractable abdominal pain Admit to the [facility] ED Provider Note NAME: GIOVANNY DURAN AGE: 81 SEX: F ARRIVES VIA: Walk-In INFORMANT: Patient and her ED PROVIDER(S): Elizabeth Rehman DO CHIEF COMPLAINT: Abdominal pain PLAN: Disposition: Admit to the [facility] Condition: Fair MEDICAL DECISION MAKING: This is an 81-year-old female patient with a history of sigmoid diverticulitis who presents to the emergency department with persistent/worsening abdominal pain. Patient has been taking oral Augmentin over the past week with no improvement in her abdominal pain. In fact, the pain has been worsening. Patient had a CT scan done on May 10 which showed evidence of sigmoid diverticulitis. She had a white blood cell count of 15.7 at that time. She returned on May 15 because the pain was persisting and was slightly worse. The white blood cell count at that time had improved to 10.5 but there was some worsening distal sigmoid diverticulitis noted. Patient continued to take oral Augmentin along with [place] for her pain. She presents back to the emergency department tonight because the pain has become more severe. Today's white blood cell count is as high as 13.7 and the pain has significantly worsened. The patient was given multiple doses of IV morphine and Dilaudid for pain management here in the emergency department and a dose of IV Zosyn for antibiotics. After review of the information above and other included that I feel the patient will require inpatient care for IV analgesia and IV antibiotics. [facility] and [facility] will evaluate for further manageme nt. Triage Nursing notes reviewed and agree with them. Additional history obtained from her Prior medical records reviewed including the previous CT scans laboratory studies from her emergency department visits Vital Signs: reviewed and unremarkable Differential diagnosis: Persistent sigmoid diverticulitis; perforated diverticulitis; abscess formation ER treatment provided: IV normal saline drip IV morphine-2 mg x2 IV Dilaudid-0.5 mg IV Zofran-4 mg manager monitoring Diagnostics interpreted by me: Cardiac Monitoring: Normal sinus rhythm at a rate of 82 as per my interpretation Laboratory studies: See below HPI: 81/F arrives for evaluation of abdominal pain. The patient has been taking oral Augmentin over the past week for the diagnosis of sigmoid diverticulitis but has not had any improvement, in fact her symptoms have wors ened. He has been using [place] for pain. Patient had a CT scan done on May 10 which showed sigmoid diverticulitis. ROS: See above HPI for pertinent positives & negatives. A total of 10 systems reviewed and were otherwise negative. PAST MEDICAL HISTORY:See Below PAST SURGICAL HISTORY:See Below FAMILY HISTORY:See Below SOCIAL HISTORY:See Below HOME MEDICATIONS:See Below ALLERGIES:See Below VITALS:See Below PHYSICAL EXAMINATION: HEENT: Head - normocephalic and atraumatic Pupils are equal, round, and reactive to light. Extraocular eye muscles are intact, and sclera are anicteric. Nose - moist nasal mucosa without discharge. Mouth - moist buccal mucosa. Oropharynx is nonerythematous and there is no tonsillar exudate or edema noted. Neck: Supple; no JVD, nuchal rigidity, cervical lymphadenopathy, or auscultated bruits. Heart: Regular rate and rhythm. There is a normal S1 and S2 with no murmurs, clicks, or gallops appreciated. Lungs: Clear to auscultation bilaterally with no wheezes, rales, or rhonchi. Abdomen: Soft, moderate tenderness to palpation in the left lower quadrant, nondistended, with good bowel sounds. There are no palpable pulsatile masses or hepatosplenomegaly. There is no guarding, rigidity, or rebound noted. Extremities: No evidence of cyanosis, clubbing, or edema. There are easily palpable peripheral pulses. Skin: warm and dry with good turgor and no rashes. ED COURSE: Times/Reassessments: 325 patient was evaluated in room C3. Previous electronic medical records were reviewed. An IV lock was initiated and labs are drawn as above. An order was placed for continuous cardiac monitoring. The patient was in a normal sinus rhythm at a rate of 82. Elizabeth Rehman DO Past Med/Surg History Medical History (Updated 05/20/22 @ 06:20 by Elizabeth Rehman DO) Acid reflux Hypercholesteremia Hypertension Hypothyroidism Sensorineural hearing loss (SNHL) of both ears Surgical History History of elbow surgery left-fracture repair History of eye surgery History of hysterectomy 1970 History of shoulder replacement bilateral Previous back surgery Family History Father No significant family history Mother No significant family history Other No family history of bleeding disorder Social History Smoking Status: Never smoker Second Hand Exposure: No; Hx Alcohol Use: No Hx Substance Use: No Preferred Language: Telugu Communication Ability: Effective Family Practice Medical Doctor Required: No Beliefs That Will Affect Care: None marital status: Current Living Situation: Spouse current occupational status: retired Feels Safe at Home: Yes Assistive Devices: Hearing Aid - Right Allergies Allergies Allergy/AdvReac Type Severity Reaction Status Date / Time No Known Drug Allergies Allergy Verified 12/13/21 09:34 Home Meds Home Medications Medication Instructions Recorded Confirmed levothyroxine 112 mcg tablet 112 mcg PO DAILYBB 08/03/19 12/13/21 (Synthroid) lisinopril 10 mg tablet (Zestril) 10 mg PO QAM 08/03/19 12/13/21 rosuvastatin 5 mg tablet (Crestor) 5 mg PO HS 08/03/19 12/13/21 magnesium PO DAILY 11/06/19 12/13/21 hydrocodone 5 mg-acetaminophen 325 1 tab PO Q6H PRN Pain 05/20/22 05/20/22 mg tablet Previous Rx's Medication Instructions Recorded amoxicillin 875 mg-potassium 1 tab PO TID #21 tabs 05/15/22 clavulanate 125 mg tablet Results & Data (ED) Vital Signs Vital Signs - 24 hr 05/20/22 03:10 05/20/22 03:22 05/20/22 04:24 Temperature 37.2 C Temperature Source Oral Pulse Rate 109 H Pulse Rate [Apical] 95 H 84 Respiratory Rate 18 16 16 Blood Pressure 154/77 H Blood Pressure [Right Arm] 164/80 H 154/88 H Blood Pressure Mean 102 Blood Pressure Mean [Right Arm] 108 110 Blood Pressure Position [Right Arm] Semi-fowlers Semi-fowlers Pulse Oximetry 96 98 98 Oxygen Delivery Method Room Air Room Air Room Air Oxygen Flow Rate Sepsis Recent Fever Within 48 Hours No Sepsis New/Unexplained Change in Mental Status No Sepsis Action Taken by Nursing No Action Required 05/20/22 05:00 05/20/22 06:25 Temperature Temperature Source Pulse Rate Pulse Rate [Apical] 82 85 Respiratory Rate 18 19 Blood Pressure Blood Pressure [Right Arm] 125/80 105/52 L Blood Pressure Mean Blood Pressure Mean [Right Arm] 95 69 Blood Pressure Position [Right Arm] Semi-fowlers Pulse Oximetry 98 95 Oxygen Delivery Method Room Air Nasal Cannula Oxygen Flow Rate 3 Sepsis Recent Fever Within 48 Hours Sepsis New/Unexplained Change in Mental Status Sepsis Action Taken by Nursing Laboratory Data Result diagrams: 05/20/22 04:46 05/20/22 03:45 Lab Results 05/20/22 05/20/22 05/20/22 Range/Units 03:45 03:45 04:46 WBC Cancelled 13.75 H RBC Cancelled 4.27 Hgb Cancelled 12.1 Hct Cancelled 37.0 MCV Cancelled 86.7 MCH Cancelled 28.3 MCHC Cancelled 32.7 RDW Std Deviation Cancelled 38.6 RDW Coeff of Girma Cancelled 12.2 Plt Count Cancelled 324 MPV Cancelled 8.5 L Immature Gran % (Auto) Cancelled 0.5 Neut % (Auto) Cancelled 77.0 Lymph % (Auto) Cancelled 13.2 [place] % (Auto) Cancelled 7.9 Eos % (Auto) Cancelled 0.7 Baso % (Auto) Cancelled 0.7 Neut # (Auto) Cancelled 10.59 H Lymph # (Auto) Cancelled 1.82 [place] # (Auto) Cancelled 1.09 H Eos # (Auto) Cancelled 0.09 Baso # (Auto) Cancelled 0.09 Immature Gran # (Auto) Cancelled 0.07 H Absolute Nucleated RBC Cancelled Nucleated RBC % (auto) Cancelled Neutrophils % (Manual) Cancelled Band Neutrophils % Cancelled Lymphocytes % (Manual) Cancelled Prolymphocyte % Cancelled Reactive Lymphs % (Man) Cancelled Monocytes % (Manual) Cancelled Eosinophils % (Manual) Cancelled Basophils % (Manual) Cancelled Metamyelocytes % (Man) Cancelled Myelocytes % (Man) Cancelled Promyelocytes % (Man) Cancelled Blast Cells % (Manual) Cancelled Plasma Cell % (Manual) Cancelled Other Cells % Cancelled Nucleated RBC % Cancelled Neutrophils # (Manual) Cancelled Band Neutrophils # Cancelled Total Absolute Neuts Cancelled Lymphocytes # (Manual) Cancelled Prolymphocyte # Cancelled Reactive Lymphs # Cancelled Total Abs Lymphocytes Cancelled Monocytes # (Manual) Cancelled Eosinophils # (Manual) Cancelled Basophils # (Manual) Cancelled Metamyelocytes # (Man) Cancelled Myelocytes # (Manual) Cancelled Promyelocytes # (Man) Cancelled Blast Cells # (Man) Cancelled Plasma Cell # (Manual) Cancelled Other Cells # Cancelled Nucleated RBCs # (Man) Cancelled Hypersegmented Neuts Cancelled Hyposegmented Neuts Cancelled Hypogranular Neuts Cancelled Large Granular Lymphs Cancelled # Lrg Granular Lymphs Cancelled Hairy Cells Cancelled Smudge Cells Cancelled Toxic Granulation Cancelled Toxic Vacuolation Cancelled Dohle Bodies Cancelled Magda Rods Cancelled Platelet Estimate Cancelled Hypogranular Platelets Cancelled Clumped Platelets Cancelled Giant Platelets Cancelled Platelet Satelliting Cancelled RBC Morphology Cancelled Polychromasia Cancelled Hypochromasia Cancelled Poikilocytosis Cancelled Basophilic Stippling Cancelled Anisocytosis Cancelled Microcytosis Cancelled Macrocytosis Cancelled Spherocytes Cancelled Pappenheimer Bodies Cancelled Sickle Cells Cancelled Target Cells Cancelled Tear Drop Cells Cancelled Ovalocytes Cancelled Stomatocytes Cancelled Johnson-Switzer Bodies Cancelled Echinocytes Cancelled Acanthocytes (Spur) Cancelled Rouleaux Cancelled RBC Agglutinates Cancelled Schistocytes Cancelled Sezary Cell Cancelled Sodium 134 L (136-145) mmol/L Potassium 4.3 (3.5-5.1) mmol/L Chloride 100 (98-107) mmol/L Carbon Dioxide 26 (21-32) mmol/L Anion Gap 8 (3-11) BUN 16 (6-23) mg/dl Creatinine 0.91 (0.6-1.2) mg/dl Est Cr Clr Drug Dosing 49.8 ml/min Est GFR ( Amer) 69.1 ml/min Est GFR (Non-Af Amer) 59.6 ml/min BUN/Creatinine Ratio 17.6 (10-20) Glucose 119 H (70-99(Fasting)) mg/dl Calcium 9.1 (8.5-10.1) mg/dl Total Bilirubin 0.5 (0.2-1.0) mg/dl AST 12 L (13-39) U/L ALT 11 (7-52) U/L Alkaline Phosphatase 71 (34-104) U/L Total Protein 7.3 (6.0-8.3) gm/dl Albumin 4.2 (3.4-5.0) gm/dl Globulin 3.1 (2.5-4.0) gm/dl Albumin/Globulin Ratio 1.4 (0.9-2) Lipase 9 L (11-82) U/L Urine Color Urine Appearance (Clear) Urine pH (4.5-7.5) Ur Specific [place] (1.000-1.030) Urine Protein (Negative) Urine Glucose (UA) (Negative) Urine Ketones (Negative) Urine Blood (Negative) Urine Nitrite (Negative) Urine Bilirubin (Negative) Urine Urobilinogen (Negative) Ur Leukocyte Esterase (Negative) SARS-CoV-2, RNA, NAAT (NEGATIVE) Blood Parasites ID Cancelled 05/20/22 05/20/22 Range/Units 05:30 05:30 WBC RBC Hgb Hct MCV MCH MCHC RDW Std Deviation RDW Coeff of Girma Plt Count MPV Immature Gran % (Auto) Neut % (Auto) Lymph % (Auto) [place] % (Auto) Eos % (Auto) Baso % (Auto) Neut # (Auto) Lymph # (Auto) [place] # (Auto) Eos # (Auto) Baso # (Auto) Immature Gran # (Auto) Absolute Nucleated RBC Nucleated RBC % (auto) Neutrophils % (Manual) Band Neutrophils % Lymphocytes % (Manual) Prolymphocyte % Reactive Lymphs % (Man) Monocytes % (Manual) Eosinophils % (Manual) Basophils % (Manual) Metamyelocytes % (Man) Myelocytes % (Man) Promyelocytes % (Man) Blast Cells % (Manual) Plasma Cell % (Manual) Other Cells % Nucleated RBC % Neutrophils # (Manual) Band Neutrophils # Total Absolute Neuts Lymphocytes # (Manual) Prolymphocyte # Reactive Lymphs # Total Abs Lymphocytes Monocytes # (Manual) Eosinophils # (Manual) Basophils # (Manual) Metamyelocytes # (Man) Myelocytes # (Manual) Promyelocytes # (Man) Blast Cells # (Man) Plasma Cell # (Manual) Other Cells # Nucleated RBCs # (Man) Hypersegmented Neuts Hyposegmented Neuts Hypogranular Neuts Large Granular Lymphs # Lrg Granular Lymphs Hairy Cells Smudge Cells Toxic Granulation Toxic Vacuolation Dohle Bodies Magda Rods Platelet Estimate Hypogranular Platelets Clumped Platelets Giant Platelets Platelet Satelliting RBC Morphology Polychromasia Hypochromasia Poikilocytosis Basophilic Stippling Anisocytosis Microcytosis Macrocytosis Spherocytes Pappenheimer Bodies Sickle Cells Target Cells Tear Drop Cells Ovalocytes Stomatocytes Johnson-Switzer Bodies Echinocytes Acanthocytes (Spur) Rouleaux RBC Agglutinates Schistocytes Sezary Cell Sodium (136-145) mmol/L Potassium (3.5-5.1) mmol/L Chloride (98-107) mmol/L Carbon Dioxide (21-32) mmol/L Anion Gap (3-11) BUN (6-23) mg/dl Creatinine (0.6-1.2) mg/dl Est Cr Clr Drug Dosing ml/min Est GFR ( Amer) ml/min Est GFR (Non-Af Amer) ml/min BUN/Creatinine Ratio (10-20) Glucose (70-99(Fasting)) mg/dl Calcium (8.5-10.1) mg/dl Total Bilirubin (0.2-1.0) mg/dl AST (13-39) U/L ALT (7-52) U/L Alkaline Phosphatase (34-104) U/L Total Protein (6.0-8.3) gm/dl Albumin (3.4-5.0) gm/dl Globulin (2.5-4.0) gm/dl Albumin/Globulin Ratio (0.9-2) Lipase (11-82) U/L Urine Color Yellow Urine Appearance Clear (Clear) Urine pH 6.0 (4.5-7.5) Ur Specific [place] 1.010 (1.000-1.030) Urine Protein Negative (Negative) Urine Glucose (UA) Negative (Negative) Urine Ketones Negative (Negative) Urine Blood Negative (Negative) Urine Nitrite Negative (Negative) Urine Bilirubin Negative (Negative) Urine Urobilinogen Negative (Negative) Ur Leukocyte Esterase Negative (Negative) SARS-CoV-2, RNA, NAAT NEGATIVE (NEGATIVE) Blood Parasites ID Administered Medications Sodium Chloride (Nss) 500 mls @ 125 mls/hr IV .Q4H WAYNE Stop: 06/19/22 05:44 Last Admin: 05/20/22 05:35 Dose: 125 mls/hr Documented By: ANA Discontinued Medications Diphenhydramine HCl (Diphenhydramine 50 Mg/Ml Vial) 25 mg IV NOW STA Stop: 05/20/22 06:16 Last Admin: 05/20/22 06:26 Dose: 25 mg Documented By: AAN Hydromorphone HCl (Hydromorphone Inj 0.5 Mg/0.5 Ml Syr) 0.5 mg IV NOW STA Stop: 05/20/22 06:02 Last Admin: 05/20/22 06:08 Dose: 0.5 mg Documented By: ANA Sodium Chloride (Nss) 500 mls @ 999 mls/hr IV .Q31M ONE Stop: 05/20/22 04:10 Last Infusion: 05/20/22 04:23 Dose: 0 mls/hr Documented By: Admin: 05/20/22 03:48 Dose: 999 mls/hr Documented By: ANA Piperacillin Sod/Tazobactam Sod (Zosyn) 4.5 gm in 120 mls @ 240 mls/hr IV NOW ONE Stop: 05/20/22 06:01 Last Infusion: 05/20/22 06:00 Dose: 0 mls/hr Documented By: Admin: 05/20/22 05:51 Dose: 240 mls/hr Documented By: JORGE Morphine Sulfate (Morphine Sulfate 2 Mg/Ml Carp) 2 mg IV NOW STA Stop: 05/20/22 03:42 Last Admin: 05/20/22 03:47 Dose: 2 mg Documented By: ANA Morphine Sulfate (Morphine Sulfate 2 Mg/Ml Carp) 2 mg IV NOW STA Stop: 05/20/22 05:16 Last Admin: 05/20/22 05:28 Dose: 2 mg Documented By: ANA Ondansetron HCl (Ondansetron Inj 2 Mg/Ml 2 Ml Vial) 4 mg IV NOW STA Stop: 05/20/22 03:41 Last Admin: 05/20/22 03:47 Dose: 4 mg Documented By: ANA Discharge Plan Visit Data Chief Complaint: Abdominal Pain Stated Complaint: ABD PAIN ED Provider: Elizabeth Rehman Discharge Problem: Sigmoid diverticulitis, Intractable abdominal pain Forms Stand Alone Forms: [employer] [facility] [place]...Exactly Prescriptions Prescriptions: No Action magnesium PO DAILY lisinopril [Zestril] 10 mg tablet 10 mg PO QAM levothyroxine [Synthroid] 112 mcg tablet 112 mcg PO DAILYBB rosuvastatin [Crestor] 5 mg tablet 5 mg PO HS hydrocodone-acetaminophen 5-325 mg tablet 1 tab PO Q6H PRN (Reason: Pain) amoxicillin-pot clavulanate 875-125 mg tablet 1 tab PO TID Qty: 21 0RF Referrals Referrals: Paul Quinonez MD [Primary Care Provider] -
[2022-05-20] MEDS ORDERED: CALCIUM CARBONATE 500 MG CHEWABLE TAB PO STA (07:14)
[2022-05-20] MEDS ORDERED: FAMOTIDINE 20 MG in SYRINGE 3 ML IV PRN (08:06)
[2022-05-20] MEDS ORDERED: ACETAMINOPHEN 325 MG TAB PO PRN (08:06)
[2022-05-20] MEDS ORDERED: HYDROmorphone INJ 0.5 MG/0.5 ML SYR IV PRN (08:06)
[2022-05-20] MEDS ORDERED: ONDANSETRON INJ 2 MG/ML 2 ML VIAL IV PRN (08:06)
--- NOTE | 2022-05-20 08:36 | History and Physical Report ---
DATE OF ADMISSION: 05/20/2022. CHIEF COMPLAINT: Abdominal pain. HISTORY OF PRESENT ILLNESS: An 81-year-old female with past medical history significant for hypothyroidism, hyperlipidemia, hypertension, splenic artery aneurysm, history of rectocele, vaginal enterocele, GERD, chronic kidney disease stage III, degenerative changes of the cervical disk, history of trigeminal neuralgia, history of gout. Presents with abdominal pain. The patient's symptoms started on . She was in the ER on that day and imaging studies showed mild acute sigmoid diverticulitis and she was discharged on Augmentin and hydrocodone/acetaminophen. She came back to the ER on 05/15/2022 with similar complaints. Again she was discharged back, to take the antibiotics. She states tonight again she has severe abdominal pain in the mid abdomen to lower abdomen, 10/10 in severity, associated with nausea. That is the reason she came back and because of third ER visit, was getting admitted for failed outpatient treatment. The patient denies any diarrhea or constipation. Normal bowel movements. Normal bladder movements. Has nausea, but no vomiting, no fevers, no chest pain, no shortness of breath. Occasional dry cough. Has some runny nose. No sore throat. Somewhat hard of hearing. No blurred visions. No headache, no dizziness. Currently, she is , hemodynamically stable. ALLERGIES: No known drug allergies. PAST MEDICAL HISTORY: As mentioned above. PAST SURGICAL HISTORY: Bladder catheter insertion, colonoscopy, EGDs, extensive repair of vagina, lumbar hemilaminectomy in 1960s, neck spine fusion surgery, paravaginal defect repair, appendectomy, cholecystectomy, repair of the bladder defect, repair of vaginal prolapse, total hysterectomy. MEDICATIONS: Augmentin 1 tablet p.o. t.i.d., hydrocodone/acetaminophen 1 tablet p.o. q. 6 hours p.r.n., levothyroxine 112 mcg p.o. daily, lisinopril 10 mg p.o. daily, Crestor 5 mg p.o. at bedtime. FAMILY HISTORY: Significant for father had lung cancer, was a smoker; sister has diabetes; mother had stroke. SOCIAL HISTORY: . No smoking, no alcohol, no drug use. REVIEW OF SYSTEMS: As per HPI. Rest of the review of systems is negative. PHYSICAL EXAMINATION: GENERAL: The patient is of moderate build, not in acute distress. VITAL SIGNS: Temperature 37.2, pulse 82, respiratory rate 18, blood pressure 125/80, oxygen 98% on room air. HEENT: Pupils equal, round, and reactive to light. Oral mucosa moist. NECK: No JVD, no neck masses. CARDIOVASCULAR: S1 and S2 heard, regular rate and rhythm. No murmur, no gallop. RESPIRATORY SYSTEM: Normal AP diameter. No accessory muscle use. No wheezing, no crackles. ABDOMEN: Soft, bowel sounds present. Tenderness present in the periumbilical and lower abdominal region with mild guarding, no rigidity, no distention. CENTRAL NERVOUS SYSTEM: Cranial nerves II-XII grossly intact, nonfocal. EXTREMITIES: No edema, no erythema. LABORATORY DATA: WBC 13.7, hemoglobin 12.1, hematocrit 37, platelets 324. Sodium 134, potassium 4.3, chloride 100, bicarbonate 26, BUN 16, creatinine 0.9, serum glucose 119, calcium 9.1, total bilirubin 0.5, AST 12, ALT 11, alkaline phosphatase 71, lipase 9. Urinalysis negative. SARS-CoV-2 rapid test negative. IMAGING DATA: CT abdomen and pelvis done on 05/15/2022 shows acute sigmoid diverticulitis redemonstrated. No abscess no , pneumoperitoneum identified. No bowel obstruction. ASSESSMENT AND PLAN: This is an 81-year-old female who presents with failed outpatient treatment for sigmoid diverticulitis. 1. Sigmoid diverticulitis: Symptoms started on 05/11/2022. CT scan on 05/11/2022 showed mild acute sigmoid diverticulitis and she came to the ER again on 05/15/2022 and had a repeat CT scan that showed the same findings with no abscess or definite fistula and no pneumoperitoneum identified. Again, she comes back today. Failed outpatient treatment with Augmentin. ER started on IV antibiotics with Zosyn. Patient seemed not have tolerated Zosyn. Will continue with iv Cipro and Flagyl. IV fluids, IV antiemetics, IV Dilaudid p.r.n. Will keep her n.p.o. for now. Surgical consult. Monitor in the medical floor. 2. History of hypertension: Continue her home lisinopril. 3. Hypothyroidism: Continue Synthroid. 4. Hyperlipidemia: Continue statin. 5. Deep venous thrombosis prophylaxis: Lovenox. DISPOSITION: Closely monitor in the medical floor. PT/OT prior to discharge. Social service to help with discharge planning. Job ID: [id number] [email or web address]
[2022-05-20] MEDS: D5W AND 1/2NSS 1,000 ML IV SCH ×2 (09:18→16:40)
[2022-05-20] MEDS: LEVOTHYROXINE SODIUM 112 MCG TABLET PO SCH (09:21)
[2022-05-20] MEDS: lisinopril 10 MG TAB PO SCH (09:21)
[2022-05-20] MEDS: CIPROFLOXACIN / D5W 400 MG/200 ML BAG IV SCH ×2 (09:22→20:35)
[2022-05-20] MEDS: ENOXAPARIN INJ 40 MG/0.4 ML SYR SQ SCH (09:22)
--- NOTE | 2022-05-20 10:14 | Surgery Consultation ---
Date of Consultation May 20, 2022 Assessment & Plan (1) Sigmoid diverticulitis: IVF IV abx keep on ice chips for now advance diet in AM if continues to improve Present on Admission?: Yes History of Present Illness Attending Physician: Clemente Stratton MD History of Present Illness This is an 81YO female with past medical history significant for hypothyroidism, hyperlipidemia, hypertension, splenic artery aneurysm, history of rectocele, vaginal enterocele, GERD, chronic kidney disease stage III, degenerative changes of the cervical disk, history of trigeminal neuralgia and gout. She presented with abdominal pain which began 05/10 and was seen in the ED where she was found to have mild acute sigmoid diverticulitis and she was discharged on Augmentin. She came back to the ER with severe abdominal pain in the mid abdomen to lower abdomen which was not responsive to oral abx. She has nausea, but no vomiting, no fevers, no chest pain, no shortness of breath. CT scan shows acute diverticulitis, feels better this AM after dose of IV abx. Allergies Allergy/AdvReac Type Severity Reaction Status Date / Time No Known Drug Allergies Allergy Verified 12/13/21 09:34 Home Medications Medication Instructions Recorded Confirmed Type levothyroxine 112 mcg tablet 112 mcg PO DAILYBB 08/03/19 12/13/21 History (Synthroid) lisinopril 10 mg tablet (Zestril) 10 mg PO QAM 08/03/19 12/13/21 History rosuvastatin 5 mg tablet (Crestor) 5 mg PO HS 08/03/19 12/13/21 History magnesium PO DAILY 11/06/19 12/13/21 History amoxicillin 875 mg-potassium 1 tab PO TID #21 tabs 05/15/22 Rx clavulanate 125 mg tablet hydrocodone 5 mg-acetaminophen 325 1 tab PO Q6H PRN Pain 05/20/22 05/20/22 History mg tablet Patient History Medical History (Updated 05/20/22 @ 06:20 by Elizabeth Rehman DO) Acid reflux Hypercholesteremia Hypertension Hypothyroidism Sensorineural hearing loss (SNHL) of both ears Surgical History History of elbow surgery left-fracture repair History of eye surgery History of hysterectomy 1970 History of shoulder replacement bilateral Previous back surgery Family History Father No significant family history Mother No significant family history Other No family history of bleeding disorder Social History Smoking Status: Never smoker Second Hand Exposure: No; Hx Alcohol Use: No Hx Substance Use: No Preferred Language: Guamanian Communication Ability: Effective 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 Beliefs That Will Affect Care: None marital status: Current Living Situation: Spouse current occupational status: retired Feels Safe at Home: Yes Assistive Devices: Hearing Aid - Right Review of Systems Constitutional: no fever and no chills Eyes: no problem reported Ear, Nose, Mouth, Throat: + nasal congestion Respiratory: no cough and no dyspnea Cardiovascular: no chest pain Gastrointestinal: + abdominal pain; no nausea, no vomiting, no change in bowel habits, no constipation and no diarrhea/loose stools Genitourinary: no dysuria Musculoskeletal: no back pain and no neck pain Integumentary: no rash and no lesions Neurologic: + generalized weakness; no localized weakness Psychiatric: no behavioral changes Endocrine: no fatigue Hematologic / Lymphatic: no easy bleeding and no easy bruising Physical Exam Constitutional: WD/WN, vitals as above Eyes: PERRL, conjunctivae normal, anicteric sclerae ENMT: external ear and nose normal, oropharynx normal Neck: trachea midline Respiratory: normal respiratory effort, lungs clear to auscultation Cardiovascular: RRR, no murmur, no edema Gastrointestinal (Abdomen): Inspection/Auscultation: abdomen normal to inspection, normal bowel sounds and + abdominal surgical scar; abdomen not distended Percussion/Palpation: + abdomen tender and abdomen soft; no guarding and abdomen not rigid Musculoskeletal: Head/Neck/Chest: normocephalic and head atraumatic Skin: no rashes, warm and dry Psychiatric: Orientation: alert and oriented x 3 Results & Data ([facility]) Vital Signs (Past 12 Hours) Vital Signs Temp Pulse Pulse Pulse Resp BP BP 05/20/22 08:00 36.6 C 83 18 119/65 05/20/22 07:31 75 20 05/20/22 07:21 81 20 102/57 L 05/20/22 06:00 05/20/22 06:30 86 18 107/52 L 01/07/23 06:18 81 20 99/54 L 05/20/22 06:00 101 H 28 H 104/62 05/20/22 05:30 88 19 130/82 05/20/22 06:25 85 19 105/52 L 05/20/22 05:00 82 18 125/80 05/20/22 04:24 84 16 154/88 H 05/20/22 03:22 95 H 16 164/80 H 05/20/22 03:10 37.2 C 109 H 18 154/77 H Pulse Ox O2 Del Method O2 Flow Rate 05/20/22 08:00 98 Room Air 05/20/22 07:31 99 Nasal Cannula 1 05/20/22 07:21 100 Nasal Cannula 1 05/20/22 06:00 83 L Nasal Cannula 0 05/20/22 06:30 95 Nasal Cannula 3 05/20/22 06:18 91 Nasal Cannula 3 05/20/22 06:00 95 Nasal Cannula 3 05/20/22 05:30 96 Room Air 05/20/22 06:25 95 Nasal Cannula 3 05/20/22 05:00 98 Room Air 05/20/22 04:24 98 Room Air 05/20/22 03:22 98 Room Air 05/20/22 03:10 96 Room Air Diagnostic Findings ABDOMEN AND PELVIS CT WITH IV AND ORAL CONTRAST CT DOSE: 849.18 mGycm HISTORY: Acute lower abdominal pain diverticulitis, fistula vs abscess TECHNIQUE: Multiaxial CT images of the abdomen and pelvis were performed following the IV administration of 94 cc of Optiray and oral contrast. A dose lowering technique was utilized adhering to the principles of ALARA. COMPARISON STUDY: 05/10/2022 FINDINGS: Clear lung bases. No pneumatosis or pneumoperitoneum identified. Unremarkable spleen and adrenal glands. Splenic artery aneurysm without rupture stable from prior, 2.3 x 1.9 cm. Atrophic pancreas. Cholecystectomy. The liver is within normal limits. Patency of the hepatic and portal veins. Mild cortical thinning of the kidneys. There are a few renal sinus cysts noted within the bilateral kidneys. Subcentimeter hypodensities of the renal pa renchyma bilaterally are too small to characterize, likely additional cysts. No hydronephrosis. Urinary bladder wall thickening with partial distention. Pelvic floor relaxation with rectocele. Hysterectomy. Colonic diverticulosis. Acute diverticulitis involving the mid sigmoid colon abutting the left aspect of the vaginal cuff has improved. More distal acute sigmoid diverticulitis in the right hemipelvis on image 328 series 3 has progressively worsened from prior study. No abscess. Tiny lymph nodes within the sigmoid mesocolon, likely reactive. No definite fistula identified on today's study. The appendix is not visualized. No CT evidence of acute appendicitis. Degenerative changes of the spine, pelvis and hips. 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 IMPRESSION: 1. Acute sigmoid diverticulitis redemonstrated. 2. No abscess, definite fistula or pneumoperitoneum identified 3. No bowel obstruction. 4. Additional findings as above.
[2022-05-20 10:42] LABS: BUN Creatinine Ratio 15.3 (10-20); Calcium 8.7 mg/dl (8.5-10.1); Creatinine Clr Calc Pharmacy 40.8 ml/min; Est GFR (African American) 54.3 ml/min; Est GFR (Non-African American) 46.9 ml/min; Magnesium 1.9 mg/dl (1.7-2.4); Potassium 5.3 mmol/L (3.5-5.1)
[2022-05-20] MEDS: metroNIDAZOLE 500 MG/100 ML BAG IV SCH ×2 (11:29→19:30)
[2022-05-20] MEDS: ROSUVASTATIN CALCIUM 5 MG TAB PO SCH (19:31)
[2022-05-21] MEDS: D5W AND 1/2NSS 1,000 ML IV SCH ×3 (00:41→18:27)
[2022-05-21] MEDS: metroNIDAZOLE 500 MG/100 ML BAG IV SCH ×3 (03:55→20:37)
[2022-05-21 05:47] LABS: Basophils # (auto) 0.07 K/uL (0-0.2); Basophils % (auto) 0.7 %; Eosinophils # (auto) 0.35 K/uL (0-0.50); Eosinophils % (auto) 3.4 %; Hematocrit (blood only) 33.3 % (34.1-44.9); Immature Granulocytes # (auto) 0.06 K/uL (0.00-0.02); Immature Granulocytes % (auto) 0.6 %; Lymphocytes # (auto) 2.34 K/uL (1.2-3.4); Lymphocytes % (auto) 22.5 %; Mean Corpuscular Hemoglobin 28.9 pg (25.0-34.0); Mean Corpuscular Volume 87.6 fL (80.0-100.0); Monocytes # (auto) 0.77 K/uL (0.24-0.82); Monocytes % (auto) 7.4 %; Neutrophils # (auto) 6.82 K/uL (1.4-6.5); Neutrophils % (auto) 65.4 %; Platelet Count 285 K/uL (130-400); RDW Coefficient of Variation 12.4 % (11.5-14.5); RDW Standard Deviation 39.8 fL (36.4-46.3); White Blood Count 10.41 K/ul (4.8-10.8)
[2022-05-21] MEDS: LEVOTHYROXINE SODIUM 112 MCG TABLET PO SCH (05:52)
[2022-05-21 06:38] LABS: BUN Creatinine Ratio 10.7 (10-20); Creatinine Clr Calc Pharmacy 40.5 ml/min; Est GFR (African American) 53.7 ml/min; Est GFR (Non-African American) 46.4 ml/min; Magnesium 1.9 mg/dl (1.7-2.4); Phosphorus 2.6 mg/dl (2.5-4.9); Potassium 4.1 mmol/L (3.5-5.1)
--- NOTE | 2022-05-21 07:32 | Hospitalist Progress Note ---
Date of Service May 21, 2022 Assessment & Plan (1) Sigmoid diverticulitis: Plan: This is an 81-year-old female who presents with failed outpatient treatment for sigmoid diverticulitis. 1. Sigmoid diverticulitis: Symptoms started on 05/11/2022. CT scan on 05/11/2022 showed mild acute sigmoid diverticulitis and she came to the ER again on 05/15/2022 and had a repeat CT scan that showed the same findings with no abscess or definite fistula and no pneumoperitoneum identified. Again, she comes to ER - Failed outpatient treatment with Augmentin. ER started on IV antibiotics with Zosyn. Patient seemed not have tolerated Zosyn. Will continue with iv Cipro and Flagyl. IV fluids, IV antiemetics, IV Dilaudid p.r.n. Surgery consulted. Will advance diet to clear liquid 2. History of hypertension: Continue her home lisinopril. 3. Hypothyroidism: Continue Synthroid. 4. Hyperlipidemia: Continue statin. DVT ppx Lovenox. DISPOSITION:medical floor. PT/OT prior to discharge. Admission and Anticipated Discharge Date Admission Date: May 20, 2022 Subjective Patient seen in follow-up of diverticulitis, failed outpatient treatment Currently lying in bed, in no acute distress Abdominal pain is improved However she feels a lot of pressure in the groin area Seen patient in the presence of surgeon Patient denies any fevers chills chest pain shortness of breath, feels hungry Diet advanced to clear liquid Review of Systems Review of Systems: All systems reviewed & are unremarkable except as noted in Subjective Physical Exam Physical Exam: GENERAL: The patient is of moderate build, not in acute distress. HEENT: Pupils equal, round, and reactive to light. Oral mucosa moist. NECK: No JVD, no neck masses. CARDIOVASCULAR: S1 and S2 heard, regular rate and rhythm. No murmur, no gallop. RESPIRATORY: Normal AP diameter. No accessory muscle use. No wheezing, no crackles. ABDOMEN: Soft, bowel sounds present. Tenderness present in the periumbilical and lower abdominal region (improved), no rigidity, no distention., + bowel sounds NEURO:Awake alert oriented, answering questions appropriately, no facial asymmetry, moves extremities EXTREMITIES: No edema, no erythema SKIN: warm, dry Results & Data Results & Data ([facility]) Vital Signs (Past 12 Hours) Vital Signs Temp Pulse Resp BP Pulse Ox O2 Del Method 05/20/22 20:30 Room Air 05/20/22 21:52 36.7 C 68 16 103/58 L 96 Room Air Laboratory Results 05/21/22 05/21/22 05/20/22 Range/Units 05:09 05:09 09:26 WBC 10.41 (4.8-10.8) K/ul RBC 3.80 L (3.93-5.22) M/uL Hgb 11.0 L (12.0-16.0) g/dl Hct 33.3 L (34.1-44.9) % MCV 87.6 (80.0-100.0) fL MCH 28.9 (25.0-34.0) pg MCHC 33.0 (32.0-36.0) g/dL RDW Std Deviation 39.8 (36.4-46.3) fL RDW Coeff of Girma 12.4 (11.5-14.5) % Plt Count 285 (130-400) K/uL MPV 9.0 L (9.4-12.3) fL Immature Gran % (Auto) 0.6 % Neut % (Auto) 65.4 % Lymph % (Auto) 22.5 % [place] % (Auto) 7.4 % Eos % (Auto) 3.4 % Baso % (Auto) 0.7 % Neut # (Auto) 6.82 H (1.4-6.5) K/uL Lymph # (Auto) 2.34 (1.2-3.4) K/uL [place] # (Auto) 0.77 (0.24-0.82) K/uL Eos # (Auto) 0.35 (0-0.50) K/uL Baso # (Auto) 0.07 (0-0.2) K/uL Immature Gran # (Auto) 0.06 H (0.00-0.02) K/uL Sodium 138 137 (136-145) mmol/L Potassium 4.1 D 5.3 H D (3.5-5.1) mmol/L Chloride 107 104 (98-107) mmol/L Carbon Dioxide 27 29 (21-32) mmol/L Anion Gap 4 4 (3-11) BUN 12 17 (6-23) mg/dl Creatinine 1.12 1.11 (0.6-1.2) mg/dl Est Cr Clr Drug Dosing 40.5 40.8 ml/min Est GFR ( Amer) 53.7 54.3 ml/min Est GFR (Non-Af Amer) 46.4 46.9 ml/min BUN/Creatinine Ratio 10.7 15.3 (10-20) Glucose 111 H 129 H (70-99(Fasting)) mg/dl Calcium 8.0 L 8.7 (8.5-10.1) mg/dl Phosphorus 2.6 (2.5-4.9) mg/dl Magnesium 1.9 1.9 (1.7-2.4) mg/dl Medications Administered Current Inpatient Medications Acetaminophen (Acetaminophen 325 Mg Tab) 650 mg PO Q4H PRN PRN Reason: pain/fever Stop: 06/19/22 08:05 Last Admin: 05/20/22 16:38 Dose: 650 mg Enoxaparin Sodium (Enoxaparin Inj 40 Mg/0.4 Ml Syr) 40 mg SQ Q24H [facility] Stop: 06/19/22 08:05 Last Admin: 05/20/22 09:22 Dose: 40 mg Hydromorphone HCl (Hydromorphone Inj 0.5 Mg/0.5 Ml Syr) 0.5 mg IV Q4H PRN PRN Reason: Pain Stop: 06/03/22 08:05 Dextrose/Sodium Chloride (D5w And 1/2nss) 1,000 mls @ 125 mls/hr IV .Q8H [facility] Stop: 06/19/22 08:05 Last Admin: 05/21/22 00:41 Dose: 125 mls/hr Ciprofloxacin (Cipro / D5w) 400 mg in 200 mls @ 100 mls/hr IV Q12H [facility]; Protocol Stop: 05/30/22 08:05 Last Infusion: 05/20/22 22:35 Dose: Infused Metronidazole (Flagyl) 500 mg in 100 mls @ 100 mls/hr IV Q8H [facility] Stop: 05/30/22 08:05 Last Infusion: 05/21/22 04:55 Dose: Infused Famotidine 20 mg/ Syringe 5 mls @ 2.5 mls/min IV DAILY PRN PRN Reason: Heartburn Stop: 06/19/22 08:05 Levothyroxine Sodium (Levothyroxine Sodium 112 Mcg Tablet) 112 mcg PO DAILYBB [facility] Stop: 06/19/22 08:05 Last Admin: 05/21/22 05:52 Dose: 112 mcg Lisinopril (Lisinopril 10 Mg Tab) 10 mg PO QAM [facility] Stop: 06/19/22 08:59 Last Admin: 05/20/22 09:21 Dose: 10 mg Ondansetron HCl (Ondansetron Inj 2 Mg/Ml 2 Ml Vial) 4 mg IV Q6H PRN PRN Reason: Nausea Stop: 06/19/22 08:05 Rosuvastatin Calcium (Rosuvastatin Calcium 5 Mg Tab) 5 mg PO HS [facility] Stop: 06/19/22 20:59 Last Admin: 05/20/22 19:31 Dose: 5 mg
[2022-05-21] MEDS: ENOXAPARIN INJ 40 MG/0.4 ML SYR SQ SCH (08:38)
[2022-05-21] MEDS: CIPROFLOXACIN / D5W 400 MG/200 ML BAG IV SCH ×2 (08:38→21:38)
[2022-05-21] MEDS: lisinopril 10 MG TAB PO SCH (08:38)
--- NOTE | 2022-05-21 10:05 | Surgery Progress Note ---
Date of Service May 21, 2022 Assessment & Plan (1) Sigmoid diverticulitis: Plan: responding to IV abx begin diet decrease IVF Present on Admission?: Yes Admission and Anticipated Discharge Date Admission Date: May 20, 2022 Subjective feels better hungry afebrile Review of Systems Constitutional: no fever and no chills Respiratory: no cough and no dyspnea Cardiovascular: no chest pain Gastrointestinal: + abdominal pain; no nausea, no vomiting and no change in bowel habits Genitourinary: no dysuria Musculoskeletal: no back pain and no neck pain Integumentary: no lesions Neurologic: no localized weakness Psychiatric: no behavioral changes Endocrine: no fatigue Hematologic / Lymphatic: no easy bleeding and no easy bruising Physical Exam Constitutional: WD/WN, vitals as above Eyes: PERRL, conjunctivae normal, anicteric sclerae ENMT: external ear and nose normal, oropharynx normal Neck: trachea midline Respiratory: normal respiratory effort, lungs clear to auscultation Cardiovascular: RRR, no murmur, no edema Gastrointestinal (Abdomen): Inspection/Auscultation: abdomen normal to inspection and normal bowel sounds; abdomen not distended Percussion/Palpation: + abdomen tender and abdomen soft; no guarding and abdomen not rigid Musculoskeletal: Head/Neck/Chest: normocephalic and head atraumatic Skin: no rashes, warm and dry Psychiatric: Orientation: alert and oriented x 3 Results & Data ([facility]) Vital Signs (Past 12 Hours) Vital Signs Temp Pulse Resp BP Pulse Ox O2 Del Method 05/21/22 07:45 36.9 C 67 16 121/70 95 Room Air
[2022-05-21] MEDS: ROSUVASTATIN CALCIUM 5 MG TAB PO SCH (20:37)
--- NOTE | 2022-05-21 22:02 | Electrocardiogram Report ---
Test Reason : Blood Pressure : / mmHG Vent. Rate : 085 BPM Atrial Rate : 085 BPM P-R Int : 168 ms QRS Dur : 076 ms QT Int : 380 ms P-R-T Axes : 055 015 058 degrees QTc Int : 452 ms Normal sinus rhythm Normal ECG When compared with ECG of 03-AUG-2019 15:27, No significant change was found Confirmed by Conner Bolanos ([id number]) on 05/21/2022 10:01:58 PM Referred By: Paul Quinonez Confirmed By:Conner Bolanos
[2022-05-22] MEDS: D5W AND 1/2NSS 1,000 ML IV SCH ×2 (04:13→14:24)
[2022-05-22] MEDS: metroNIDAZOLE 500 MG/100 ML BAG IV SCH ×3 (04:14→20:38)
[2022-05-22] MEDS: LEVOTHYROXINE SODIUM 112 MCG TABLET PO SCH (05:57)
[2022-05-22 07:31] LABS: Hematocrit (blood only) 32.7 % (34.1-44.9); Hemoglobin 10.9 g/dl (12.0-16.0); Mean Corpuscular Hemoglobin 29.2 pg (25.0-34.0); Mean Corpuscular Hgb Conc 33.3 g/dL (32.0-36.0); Mean Corpuscular Volume 87.7 fL (80.0-100.0); Platelet Count 302 K/uL (130-400); RDW Coefficient of Variation 12.1 % (11.5-14.5); Red Blood Count 3.73 M/uL (3.93-5.22); White Blood Count 8.53 K/ul (4.8-10.8)
[2022-05-22 07:52] LABS: Calcium 8.5 mg/dl (8.5-10.1); Creatinine Clr Calc Pharmacy 50.9 ml/min; Est GFR (African American) 70.9 ml/min; Est GFR (Non-African American) 61.2 ml/min; Magnesium 1.9 mg/dl (1.7-2.4); Phosphorus 2.5 mg/dl (2.5-4.9); Potassium 4.2 mmol/L (3.5-5.1)
--- NOTE | 2022-05-22 08:08 | Hospitalist Progress Note ---
Date of Service May 22, 2022 Assessment & Plan (1) Sigmoid diverticulitis: Plan: This is an 81-year-old female who presents with failed outpatient treatment for sigmoid diverticulitis. 1. Sigmoid diverticulitis: Symptoms started on 05/11/2022. CT scan on 05/11/2022 showed mild acute sigmoid diverticulitis and she came to the ER again on 05/15/2022 and had a repeat CT scan that showed the same findings with no abscess or definite fistula and no pneumoperitoneum identified. Again, she comes to ER - Failed outpatient treatment with Augmentin. ER started on IV antibiotics with Zosyn. Patient seemed not have tolerated Zosyn. Will continue with iv Cipro and Flagyl. IV fluids, IV antiemetics, IV Dilaudid p.r.n. Surgery consulted. Will advance diet to full liquid 2. History of hypertension: Continue her home lisinopril. 3. Hypothyroidism: Continue Synthroid. 4. Hyperlipidemia: Continue statin. DVT ppx Lovenox. DISPOSITION:medical floor. PT/OT prior to discharge. Admission and Anticipated Discharge Date Admission Date: May 20, 2022 Subjective Patient seen in follow-up of diverticulitis, failed outpatient treatment Currently lying in bed, in no acute distress Continues to have abdominal pain but improved she also continues to feel pressure in the groin area She is passing gas, but no BM yet since being in the hospital Patient denies any fevers chills chest pain shortness of breath, feels hungry Diet advanced to full liquid, pt is tolerating Review of Systems Review of Systems: All systems reviewed & are unremarkable except as noted in Subjective Physical Exam Physical Exam: GENERAL: The patient is of moderate build, not in acute distress. HEENT: Pupils equal, round, and reactive to light. Oral mucosa moist. NECK: No JVD, no neck masses. CARDIOVASCULAR: S1 and S2 heard, regular rate and rhythm. No murmur, no gallop. RESPIRATORY: Normal AP diameter. No accessory muscle use. No wheezing, no crackles. ABDOMEN: Soft, bowel sounds present. Tenderness present in the periumbilical and lower abdominal region (improved), no rigidity, no distention., + bowel sounds NEURO:Awake alert oriented, answering questions appropriately, no facial asymmetry, moves extremities EXTREMITIES: No edema, no erythema SKIN: warm, dry Results & Data Results & Data ([facility]) Vital Signs (Past 12 Hours) Vital Signs Temp Pulse Resp BP Pulse Ox O2 Del Method 05/21/22 20:35 Room Air 05/21/22 21:25 36.6 C 69 16 127/77 95 Room Air Laboratory Results 05/22/22 05/22/22 Range/Units 06:57 06:57 WBC 8.53 (4.8-10.8) K/ul RBC 3.73 L (3.93-5.22) M/uL Hgb 10.9 L (12.0-16.0) g/dl Hct 32.7 L (34.1-44.9) % MCV 87.7 (80.0-100.0) fL MCH 29.2 (25.0-34.0) pg MCHC 33.3 (32.0-36.0) g/dL RDW Std Deviation 39.0 (36.4-46.3) fL RDW Coeff of Girma 12.1 (11.5-14.5) % Plt Count 302 (130-400) K/uL MPV 9.0 L (9.4-12.3) fL Sodium 140 (136-145) mmol/L Potassium 4.2 (3.5-5.1) mmol/L Chloride 109 H (98-107) mmol/L Carbon Dioxide 28 (21-32) mmol/L Anion Gap 3 (3-11) BUN 8 (6-23) mg/dl Creatinine 0.89 (0.6-1.2) mg/dl Est Cr Clr Drug Dosing 50.9 ml/min Est GFR ( Amer) 70.9 ml/min Est GFR (Non-Af Amer) 61.2 ml/min BUN/Creatinine Ratio 9.0 L (10-20) Glucose 111 H (70-99(Fasting)) mg/dl Calcium 8.5 (8.5-10.1) mg/dl Phosphorus 2.5 (2.5-4.9) mg/dl Magnesium 1.9 (1.7-2.4) mg/dl Medications Administered Current Inpatient Medications Acetaminophen (Acetaminophen 325 Mg Tab) 650 mg PO Q4H PRN PRN Reason: pain/fever Stop: 06/19/22 08:05 Last Admin: 05/20/22 16:38 Dose: 650 mg Enoxaparin Sodium (Enoxaparin Inj 40 Mg/0.4 Ml Syr) 40 mg SQ Q24H [facility] Stop: 06/19/22 08:05 Last Admin: 05/21/22 08:38 Dose: 40 mg Hydromorphone HCl (Hydromorphone Inj 0.5 Mg/0.5 Ml Syr) 0.5 mg IV Q4H PRN PRN Reason: Pain Stop: 06/03/22 08:05 Dextrose/Sodium Chloride (D5w And 1/2nss) 1,000 mls @ 100 mls/hr IV .Q10H [facility] Stop: 06/19/22 08:05 Last Admin: 05/22/22 04:13 Dose: 100 mls/hr Ciprofloxacin (Cipro / D5w) 400 mg in 200 mls @ 100 mls/hr IV Q12H [facility]; Protocol Stop: 05/30/22 08:05 Last Infusion: 05/21/22 23:47 Dose: Infused Metronidazole (Flagyl) 500 mg in 100 mls @ 100 mls/hr IV Q8H [facility] Stop: 05/30/22 08:05 Last Infusion: 05/22/22 05:14 Dose: Infused Famotidine 20 mg/ Syringe 5 mls @ 2.5 mls/min IV DAILY PRN PRN Reason: Heartburn Stop: 06/19/22 08:05 Levothyroxine Sodium (Levothyroxine Sodium 112 Mcg Tablet) 112 mcg PO DAILYBB [facility] Stop: 06/19/22 08:05 Last Admin: 05/22/22 05:57 Dose: 112 mcg Lisinopril (Lisinopril 10 Mg Tab) 10 mg PO QAM [facility] Stop: 06/19/22 08:59 Last Admin: 05/21/22 08:38 Dose: 10 mg Ondansetron HCl (Ondansetron Inj 2 Mg/Ml 2 Ml Vial) 4 mg IV Q6H PRN PRN Reason: Nausea Stop: 06/19/22 08:05 Rosuvastatin Calcium (Rosuvastatin Calcium 5 Mg Tab) 5 mg PO HS [facility] Stop: 06/19/22 20:59 Last Admin: 05/21/22 20:37 Dose: 5 mg
[2022-05-22] MEDS: lisinopril 10 MG TAB PO SCH (08:23)
[2022-05-22] MEDS: ENOXAPARIN INJ 40 MG/0.4 ML SYR SQ SCH (08:23)
[2022-05-22] MEDS: CIPROFLOXACIN / D5W 400 MG/200 ML BAG IV SCH ×2 (08:23→21:50)
--- NOTE | 2022-05-22 10:00 | Surgery Progress Note ---
Date of Service May 22, 2022 Assessment & Plan (1) Sigmoid diverticulitis: Plan: responding to IV abx Still has fairly significant tenderness to palpation in the lower abdomen. Continue IV antibiotics. If she fails to significantly improve in the next 48 hours, may need a repeat CT scan for further evaluation. We will continue to follow. Admission and Anticipated Discharge Date Admission Date: May 20, 2022 Subjective She states she is feeling better this morning. She is tolerating her diet of full liquids. She denies nausea or vomiting. She still has some pain and discomfort in the lower abdomen, but she states that this is significantly improved. Physical Exam Constitutional: WD/WN, vitals as above Eyes: PERRL, conjunctivae normal, anicteric sclerae Gastrointestinal (Abdomen): Inspection/Auscultation: abdomen normal to inspection and + abdominal surgical scar; abdomen not distended Percussion/Palpation: + abdomen tender and abdomen soft; no guarding Psychiatric: Orientation: alert and oriented x 3 Results & Data ([facility]) Vital Signs (Past 12 Hours) Vital Signs Temp Pulse Resp BP Pulse Ox O2 Del Method 05/22/22 08:27 36.5 C 64 16 112/64 96 Room Air
[2022-05-22] MEDS: ROSUVASTATIN CALCIUM 5 MG TAB PO SCH (20:41)
[2022-05-23] MEDS: D5W AND 1/2NSS 1,000 ML IV SCH (02:24)
[2022-05-23] MEDS: metroNIDAZOLE 500 MG/100 ML BAG IV SCH ×3 (04:58→20:55)
[2022-05-23] MEDS: LEVOTHYROXINE SODIUM 112 MCG TABLET PO SCH (05:03)
[2022-05-23 08:21] LABS: Mean Corpuscular Hemoglobin 28.8 pg (25.0-34.0); Mean Corpuscular Hgb Conc 33.3 g/dL (32.0-36.0); Mean Corpuscular Volume 86.4 fL (80.0-100.0); Platelet Count 324 K/uL (130-400); RDW Standard Deviation 37.8 fL (36.4-46.3); Red Blood Count 3.82 M/uL (3.93-5.22); White Blood Count 8.72 K/ul (4.8-10.8)
--- NOTE | 2022-05-23 08:47 | Hospitalist Progress Note ---
Date of Service May 23, 2022 Assessment & Plan (1) Sigmoid diverticulitis: Plan: This is an 81-year-old female who presents with failed outpatient treatment for sigmoid diverticulitis. 1. Sigmoid diverticulitis: Symptoms started on 05/11/2022. CT scan on 05/11/2022 showed mild acute sigmoid diverticulitis and she came to the ER again on 05/15/2022 and had a repeat CT scan that showed the same findings with no abscess or definite fistula and no pneumoperitoneum identified. Again, she comes to ER - Failed outpatient treatment with Augmentin. ER started on IV antibiotics with Zosyn. Patient seemed not have tolerated Zosyn. Will continue with iv Cipro and Flagyl. IV fluids, IV antiemetics, IV Dilaudid p.r.n. Surgery consulted. Tolerating diet 2. History of hypertension: Continue her home lisinopril. 3. Hypothyroidism: Continue Synthroid. 4. Hyperlipidemia: Continue statin. DVT ppx Lovenox. DISPOSITION:medical floor. PT/OT prior to discharge. Admission and Anticipated Discharge Date Admission Date: May 20, 2022 Subjective Patient seen in follow-up of diverticulitis, failed outpatient treatment Currently lying in bed, in no acute distress feels much improved and is tolerating diet She is passing gas, but no BM yet since being in the hospital Patient denies any fevers chills chest pain shortness of breath Review of Systems Review of Systems: All systems reviewed & are unremarkable except as noted in Subjective Physical Exam Physical Exam: GENERAL: The patient is of moderate build, not in acute distress. HEENT: Pupils equal, round, and reactive to light. Oral mucosa moist. NECK: No JVD, no neck masses. CARDIOVASCULAR: S1 and S2 heard, regular rate and rhythm. No murmur, no gallop. RESPIRATORY: Normal AP diameter. No accessory muscle use. No wheezing, no crackles. ABDOMEN: Soft, bowel sounds present. minimal Tenderness in lower abdominal region (improved), no rigidity, no distention., + bowel sounds NEURO:Awake alert oriented, answering questions appropriately, no facial asymmetry, moves extremities EXTREMITIES: No edema, no erythema SKIN: warm, dry Results & Data Results & Data ([facility]) Vital Signs (Past 12 Hours) Vital Signs Temp Pulse Resp BP Pulse Ox O2 Del Method 05/23/22 07:33 36.7 C 71 16 149/76 H 96 Room Air 05/22/22 21:12 36.5 C 66 16 163/80 H 93 Room Air Laboratory Results 05/23/22 05/23/22 Range/Units 07:42 07:42 WBC 8.72 (4.8-10.8) K/ul RBC 3.82 L (3.93-5.22) M/uL Hgb 11.0 L (12.0-16.0) g/dl Hct 33.0 L (34.1-44.9) % MCV 86.4 (80.0-100.0) fL MCH 28.8 (25.0-34.0) pg MCHC 33.3 (32.0-36.0) g/dL RDW Std Deviation 37.8 (36.4-46.3) fL RDW Coeff of Girma 12.0 (11.5-14.5) % Plt Count 324 (130-400) K/uL MPV 9.0 L (9.4-12.3) fL Sodium 140 (136-145) mmol/L Potassium 3.8 (3.5-5.1) mmol/L Chloride 108 H (98-107) mmol/L Carbon Dioxide 28 (21-32) mmol/L Anion Gap 4 (3-11) BUN 6 (6-23) mg/dl Creatinine 0.92 (0.6-1.2) mg/dl Est Cr Clr Drug Dosing 49.3 ml/min Est GFR ( Amer) 68.2 ml/min Est GFR (Non-Af Amer) 58.8 ml/min BUN/Creatinine Ratio 6.5 L (10-20) Glucose 111 H (70-99(Fasting)) mg/dl Calcium 8.3 L (8.5-10.1) mg/dl Phosphorus 2.6 (2.5-4.9) mg/dl Magnesium 1.7 (1.7-2.4) mg/dl Medications Administered Current Inpatient Medications Acetaminophen (Acetaminophen 325 Mg Tab) 650 mg PO Q4H PRN PRN Reason: pain/fever Stop: 06/19/22 08:05 Last Admin: 05/20/22 16:38 Dose: 650 mg Enoxaparin Sodium (Enoxaparin Inj 40 Mg/0.4 Ml Syr) 40 mg SQ Q24H [facility] Stop: 06/19/22 08:05 Last Admin: 05/22/22 08:23 Dose: 40 mg Hydromorphone HCl (Hydromorphone Inj 0.5 Mg/0.5 Ml Syr) 0.5 mg IV Q4H PRN PRN Reason: Pain Stop: 06/03/22 08:05 Dextrose/Sodium Chloride (D5w And 1/2nss) 1,000 mls @ 80 mls/hr IV .[id number] [facility] Stop: 06/19/22 08:05 Last Admin: 05/23/22 02:24 Dose: 80 mls/hr Ciprofloxacin (Cipro / D5w) 400 mg in 200 mls @ 100 mls/hr IV Q12H [facility]; Protocol Stop: 05/30/22 08:05 Last Infusion: 05/22/22 23:55 Dose: Infused Metronidazole (Flagyl) 500 mg in 100 mls @ 100 mls/hr IV Q8H [facility] Stop: 05/30/22 08:05 Last Infusion: 05/23/22 05:58 Dose: Infused Famotidine 20 mg/ Syringe 5 mls @ 2.5 mls/min IV DAILY PRN PRN Reason: Heartburn Stop: 06/19/22 08:05 Levothyroxine Sodium (Levothyroxine Sodium 112 Mcg Tablet) 112 mcg PO DAILYBB [facility] Stop: 06/19/22 08:05 Last Admin: 05/23/22 05:03 Dose: 112 mcg Lisinopril (Lisinopril 10 Mg Tab) 10 mg PO QAM [facility] Stop: 06/19/22 08:59 Last Admin: 05/22/22 08:23 Dose: 10 mg Ondansetron HCl (Ondansetron Inj 2 Mg/Ml 2 Ml Vial) 4 mg IV Q6H PRN PRN Reason: Nausea Stop: 06/19/22 08:05 Last Admin: 05/23/22 03:54 Dose: 4 mg Rosuvastatin Calcium (Rosuvastatin Calcium 5 Mg Tab) 5 mg PO HS [facility] Stop: 06/19/22 20:59 Last Admin: 05/22/22 20:41 Dose: 5 mg
[2022-05-23 08:52] LABS: BUN Creatinine Ratio 6.5 (10-20); Calcium 8.3 mg/dl (8.5-10.1); Creatinine Clr Calc Pharmacy 49.3 ml/min; Est GFR (African American) 68.2 ml/min; Est GFR (Non-African American) 58.8 ml/min; Magnesium 1.7 mg/dl (1.7-2.4); Phosphorus 2.6 mg/dl (2.5-4.9); Potassium 3.8 mmol/L (3.5-5.1)
[2022-05-23] MEDS: ENOXAPARIN INJ 40 MG/0.4 ML SYR SQ SCH (08:52)
[2022-05-23] MEDS: lisinopril 10 MG TAB PO SCH (08:52)
[2022-05-23] MEDS: CIPROFLOXACIN / D5W 400 MG/200 ML BAG IV SCH ×2 (08:52→21:55)
[2022-05-23] MEDS ORDERED: MAGNESIUM OXIDE 400 MG TAB PO ONE (11:15)
--- NOTE | 2022-05-23 12:26 | Surgery Progress Note ---
Date of Service May 23, 2022 Assessment & Plan (1) Sigmoid diverticulitis: Plan: responding to IV abx no leukocytosis afebrile passing gas, no bowel movement yet pain minimal today Plan: Continue IV abx, would consider 14 day total course of IV and oral antibiotics given the surrounding inflammation of the vagin on prior CT scan. Also would consider outpatient GI follow-up. Last colonoscopy was in 2019. continue low fiber diet Okay for stool softener encouraged ambulating hallway to increase GI motility continue medical management Discussed with Dr. Birmingham who agrees with above. Admission and Anticipated Discharge Date Admission Date: May 20, 2022 Subjective feeling better today regarding abdominal pain had nausea and dry heaves last evening, now resolved passing gas but no bowel movement since admission, usually takes laxative pill daily at bedtime and has bowel movement everyday no ambulating hallway tolerated low fiber diet but did not eat much Physical Exam Constitutional: WD/WN, vitals as above + obese; no acute distress and not ill appearing Respiratory: normal respiratory effort, lungs clear to auscultation Cardiovascular: RRR, no murmur, no edema Gastrointestinal (Abdomen): Inspection/Auscultation: abdomen normal to inspection and normal bowel sounds; abdomen not distended Percussion/P alpation: + abdomen tender (LLQ on deep palpation) and abdomen soft; no guarding and abdomen not rigid Skin: no rashes, warm and dry Psychiatric: A+Ox3, euthymic affect Results & Data ([facility]) Vital Signs (Past 12 Hours) Vital Signs Temp Pulse Resp BP Pulse Ox O2 Del Method 05/23/22 07:33 36.7 C 71 16 149/76 H 96 Room Air Laboratory Results 05/23/22 05/23/22 Range/Units 07:42 07:42 WBC 8.72 (4.8-10.8) K/ul RBC 3.82 L (3.93-5.22) M/uL Hgb 11.0 L (12.0-16.0) g/dl Hct 33.0 L (34.1-44.9) % MCV 86.4 (80.0-100.0) fL MCH 28.8 (25.0-34.0) pg MCHC 33.3 (32.0-36.0) g/dL RDW Std Deviation 37.8 (36.4-46.3) fL RDW Coeff of Girma 12.0 (11.5-14.5) % Plt Count 324 (130-400) K/uL MPV 9.0 L (9.4-12.3) fL Sodium 140 (136-145) mmol/L Potassium 3.8 (3.5-5.1) mmol/L Chloride 108 H (98-107) mmol/L Carbon Dioxide 28 (21-32) mmol/L Anion Gap 4 (3-11) BUN 6 (6-23) mg/dl Creatinine 0.92 (0.6-1.2) mg/dl Est Cr Clr Drug Dosing 49.3 ml/min Est GFR ( Amer) 68.2 ml/min Est GFR (Non-Af Amer) 58.8 ml/min BUN/Creatinine Ratio 6.5 L (10-20) Glucose 111 H (70-99(Fasting)) mg/dl Calcium 8.3 L (8.5-10.1) mg/dl Phosphorus 2.6 (2.5-4.9) mg/dl Magnesium 1.7 (1.7-2.4) mg/dl
[2022-05-23] MEDS ORDERED: MELATONIN 3 MG TAB PO PRN (14:59)
[2022-05-23] MEDS: POLYETHYLENE (MIRALAX) 17 GM PACK PO PRN (16:19)
[2022-05-23] MEDS: ROSUVASTATIN CALCIUM 5 MG TAB PO SCH (21:08)
[2022-05-24] MEDS: metroNIDAZOLE 500 MG/100 ML BAG IV SCH ×2 (03:08→12:45)
[2022-05-24] MEDS: POLYETHYLENE (MIRALAX) 17 GM PACK PO PRN (03:08)
[2022-05-24] MEDS: LEVOTHYROXINE SODIUM 112 MCG TABLET PO SCH (06:11)
[2022-05-24 08:09] LABS: Hemoglobin 11.6 g/dl (12.0-16.0); Mean Corpuscular Hemoglobin 28.6 pg (25.0-34.0); Mean Corpuscular Hgb Conc 34.1 g/dL (32.0-36.0); Mean Corpuscular Volume 83.7 fL (80.0-100.0); Mean Platelet Volume 8.8 fL (9.4-12.3); Platelet Count 354 K/uL (130-400); RDW Standard Deviation 36.7 fL (36.4-46.3); Red Blood Count 4.06 M/uL (3.93-5.22); White Blood Count 8.35 K/ul (4.8-10.8)
[2022-05-24 08:26] LABS: BUN Creatinine Ratio 7.5 (10-20); Calcium 8.7 mg/dl (8.5-10.1); Creatinine Clr Calc Pharmacy 48.7 ml/min; Est GFR (African American) 67.3 ml/min; Magnesium 1.7 mg/dl (1.7-2.4); Potassium 4.2 mmol/L (3.5-5.1)
--- NOTE | 2022-05-24 08:53 | Hospitalist Progress Note ---
Date of Service May 24, 2022 Assessment & Plan (1) Sigmoid diverticulitis: Plan: This is an 81-year-old female who presents with failed outpatient treatment for sigmoid diverticulitis. 1. Sigmoid diverticulitis: Symptoms started on 05/11/2022. CT scan on 05/11/2022 showed mild acute sigmoid diverticulitis and she came to the ER again on 05/15/2022 and had a repeat CT scan that showed the same findings with no abscess or definite fistula and no pneumoperitoneum identified. Again, she comes to ER - Failed outpatient treatment with Augmentin. ER started on IV antibiotics with Zosyn. Patient seemed not have tolerated Zosyn. Continued with iv Cipro and Flagyl. IV fluids, IV antiemetics, IV Dilaudid p.r.n. Surgery consulted. Tolerating diet Abd. pain resolved Discharge on p.o. Cipro and Flagyl to finish treatment. Recommend gastroenterology follow-up after antibiotic course finished. 2. History of hypertension: Continue her home lisinopril. 3. Hypothyroidism: Continue Synthroid. 4. Hyperlipidemia: Continue statin. DVT ppx Lovenox. DISPOSITION: Plan to [place] home Admission and Anticipated Discharge Date Admission Date: May 20, 2022 Subjective Patient seen in follow-up of diverticulitis, failed outpatient treatment Currently lying in bed, in no acute distress feels much improved and is tolerating diet, denies abd. pain She is passing gas, but no BM yet since being in the hospital Patient denies any fevers chills chest pain shortness of breath She is eager to be discharged Review of Systems Review of Systems: All systems reviewed & are unremarkable except as noted in Subjective Physical Exam Physical Exam: GENERAL: The patient is of moderate build, not in acute distress. HEENT: Pupils equal, round, and reactive to light. Oral mucosa moist. NECK: No JVD, no neck masses. CARDIOVASCULAR: S1 and S2 heard, regular rate and rhythm. No murmur, no gallop. RESPIRATORY: Normal AP diameter. No accessory muscle use. No wheezing, no crackles. ABDOMEN: Soft, bowel sounds present. minimal Tenderness in lower abdominal region (improved), no rigidity, no distention., + bowel sounds NEURO:Awake alert oriented, answering questions appropriately, no facial asymmetry, moves extremities EXTREMITIES: No edema, no erythema SKIN: warm, dry Results & Data Results & Data ([place]) Vital Signs (Past 12 Hours) Vital Signs Temp Pulse Pulse Resp BP BP Pulse Ox 05/24/22 08:04 36.5 C 62 15 130/72 97 05/23/22 21:08 05/23/22 21:31 36.6 C 73 16 152/77 H 97 O2 Del Method 05/24/22 08:04 Room Air 05/23/22 21:08 Room Air 05/23/22 21:31 Room Air Laboratory Results 05/24/22 05/24/22 05/23/22 Range/Units 07:48 07:48 07:42 WBC 8.35 (4.8-10.8) K/ul RBC 4.06 (3.93-5.22) M/uL Hgb 11.6 L (12.0-16.0) g/dl Hct 34.0 L (34.1-44.9) % MCV 83.7 (80.0-100.0) fL MCH 28.6 (25.0-34.0) pg MCHC 34.1 (32.0-36.0) g/dL RDW Std Deviation 36.7 (36.4-46.3) fL RDW Coeff of Girma 12.0 (11.5-14.5) % Plt Count 354 (130-400) K/uL MPV 8.8 L (9.4-12.3) fL Sodium 139 140 (136-145) mmol/L Potassium 4.2 3.8 (3.5-5.1) mmol/L Chloride 107 108 H (98-107) mmol/L Carbon Dioxide 28 28 (21-32) mmol/L Anion Gap 4 4 (3-11) BUN 7 6 (6-23) mg/dl Creatinine 0.93 0.92 (0.6-1.2) mg/dl Est Cr Clr Drug Dosing 48.7 49.3 ml/min Est GFR ( Amer) 67.3 68.2 ml/min Est GFR (Non-Af Amer) 58.0 58.8 ml/min BUN/Creatinine Ratio 7.5 L 6.5 L (10-20) Glucose 91 111 H (70-99(Fasting)) mg/dl Calcium 8.7 8.3 L (8.5-10.1) mg/dl Phosphorus 3.0 2.6 (2.5-4.9) mg/dl Magnesium 1.7 1.7 (1.7-2.4) mg/dl Medications Administered Current Inpatient Medications Acetaminophen (Acetaminophen 325 Mg Tab) 650 mg PO Q4H PRN PRN Reason: pain/fever Stop: 06/19/22 08:05 Last Admin: 05/20/22 16:38 Dose: 650 mg Enoxaparin Sodium (Enoxaparin Inj 40 Mg/0.4 Ml Syr) 40 mg SQ Q24H [facility] Stop: 06/19/22 08:05 Last Admin: 05/23/22 08:52 Dose: 40 mg Hydromorphone HCl (Hydromorphone Inj 0.5 Mg/0.5 Ml Syr) 0.5 mg IV Q4H PRN PRN Reason: Pain Stop: 06/03/22 08:05 Ciprofloxacin (Cipro / D5w) 400 mg in 200 mls @ 100 mls/hr IV Q12H [facility]; Protocol Stop: 05/30/22 08:05 Last Infusion: 05/23/22 23:55 Dose: Infused Metronidazole (Flagyl) 500 mg in 100 mls @ 100 mls/hr IV Q8H [facility] Stop: 05/30/22 08:05 Last Infusion: 05/24/22 04:15 Dose: Infused Famotidine 20 mg/ Syringe 5 mls @ 2.5 mls/min IV DAILY PRN PRN Reason: Heartburn Stop: 06/19/22 08:05 Levothyroxine Sodium (Levothyroxine Sodium 112 Mcg Tablet) 112 mcg PO DAILYBB [facility] Stop: 06/19/22 08:05 Last Admin: 05/24/22 06:11 Dose: 112 mcg Lisinopril (Lisinopril 10 Mg Tab) 10 mg PO QAM [facility] Stop: 06/19/22 08:59 Last Admin: 05/23/22 08:52 Dose: 10 mg Magnesium Oxide (Magnesium Oxide 400 Mg Tab) 400 mg PO QAM [facility] Stop: 06/23/22 08:59 Melatonin (Melatonin 3 Mg Tab) 3 mg PO HS PRN PRN Reason: Sleep Stop: 06/22/22 14:58 Last Admin: 05/23/22 22:10 Dose: 3 mg Ondansetron HCl (Ondansetron Inj 2 Mg/Ml 2 Ml Vial) 4 mg IV Q6H PRN PRN Reason: Nausea Stop: 06/19/22 08:05 Last Admin: 05/23/22 03:54 Dose: 4 mg Polyethylene Glycol (Polyethylene (Miralax) 17 Gm Pack) 17 gm PO DAILY PRN PRN Reason: Constipation Stop: 06/22/22 12:36 Last Admin: 05/24/22 03:08 Dose: 17 gm Rosuvastatin Calcium (Rosuvastatin Calcium 5 Mg Tab) 5 mg PO HS [facility] Stop: 06/19/22 20:59 Last Admin: 05/23/22 21:08 Dose: 5 mg
[2022-05-24] MEDS ORDERED: MAGNESIUM OXIDE 400 MG TAB PO SCH (09:00)
[2022-05-24] MEDS: lisinopril 10 MG TAB PO SCH (09:09)
[2022-05-24] MEDS: CIPROFLOXACIN / D5W 400 MG/200 ML BAG IV SCH (09:09)
[2022-05-24] MEDS: ENOXAPARIN INJ 40 MG/0.4 ML SYR SQ SCH (09:09)
--- NOTE | 2022-05-24 15:04 | Discharge Summary ---
Date of Service May 24, 2022 Admission HPI Per Admitting Provider An 81-year-old female with past medical history significant for hypothyroidism, hyperlipidemia, hypertension, splenic artery aneurysm, history of rectocele, vaginal enterocele, GERD, chronic kidney disease stage III, degenerative changes of the cervical disk, history of trigeminal neuralgia, history of gout. Presents with abdominal pain. The patient's symptoms started on . She was in the ER on that day and imaging studies showed mild acute sigmoid diverticulitis and she was discharged on Augmentin and hydrocodone/acetaminophen. She came back to the ER on 05/15/2022 with similar complaints. Again she was discharged back, to take the antibiotics. She states tonight again she has severe abdominal pain in the mid abdomen to lower abdomen, 10/10 in severity, associated with nausea. That is the reason she came back and because of third ER visit, was getting admitted for failed outpatient treatment. The patient denies any diarrhea or constipation. Normal bowel movements. Normal bladder movements. Has nausea, but no vomiting, no fevers, no chest pain, no shortness of breath. Occasional dry cough. Has some runny nose. No sore throat. Somewhat hard of hearing. No blurred visions. No he adache, no dizziness. Currently, she is , hemodynamically stable. Admission Exam Per Admitting Provider GENERAL: The patient is of moderate build, not in acute distress. VITAL SIGNS: Temperature 37.2, pulse 82, respiratory rate 18, blood pressure 125/80, oxygen 98% on room air. HEENT: Pupils equal, round, and reactive to light. Oral mucosa moist. NECK: No JVD, no neck masses. CARDIOVASCULAR: S1 and S2 heard, regular rate and rhythm. No murmur, no gallop. RESPIRATORY SYSTEM: Normal AP diameter. No accessory muscle use. No wheezing, no crackles. ABDOMEN: Soft, bowel sounds present. Tenderness present in the periumbilical and lower abdominal region with mild guarding, no rigidity, no distention. CENTRAL NERVOUS SYSTEM: Cranial nerves II-XII grossly intact, nonfocal. EXTREMITIES: No edema, no erythema. Principal Diagnosis Sigmoid diverticulitis Discharge Exam GENERAL: The patient is of moderate build, not in acute distress. HEENT: Pupils equal, round, and reactive to light. Oral mucosa moist. NECK: No JVD, no neck masses. CARDIOVASCULAR: S1 and S2 heard, regular rate and rhythm. No murmur, no gallop. RESPIRATORY: Normal AP diameter. No accessory muscle use. No wheezing, no crackles. ABDOMEN: Soft, bowel sounds present. minimal Tenderness in lower abdominal region (improved), no rigidity, no distention., + bowel sounds NEURO:Awake alert oriented, answering questions appropriately, no facial asymmetry, moves extremities EXTREMITIES: No edema, no erythema SKIN: warm, dry Discharge Data Allergies Allergy/AdvReac Type Severity Reaction Status Date / Time No Known Drug Allergies Allergy Verified 12/13/21 09:34 Consultations 05/20/22 05:20 ED Decision to Admit Stat 05/20/22 08:06 Consult General Surgery Routine Hospital Course (1) Sigmoid diverticulitis: This is an 81-year-old female who presents with failed outpatient treatment for sigmoid diverticulitis. 1. Sigmoid diverticulitis: Symptoms started on 05/11/2022. CT scan on 05/11/2022 showed mild acute sigmoid diverticulitis and she came to the ER again on 05/15/2022 and had a repeat CT scan that showed the same findings with no abscess or definite fistula and no pneumoperitoneum mauricio ntified. Again, she comes to ER - Failed outpatient treatment with Augmentin. ER started on IV antibiotics with Zosyn. Patient seemed not have tolerated Zosyn. Continued with iv Cipro and Flagyl. IV fluids, IV antiemetics, IV Dilaudid p.r.n. Surgery consulted. Tolerating diet Abd. pain resolved Discharge on p.o. Cipro and Flagyl to finish treatment. Recommend gastroenterology follow-up after antibiotic course finished. 2. History of hypertension: Continue her home lisinopril. 3. Hypothyroidism: Continue Synthroid. 4. Hyperlipidemia: Continue statin. Total Time Total Time Spent Total Time Spent (In Minutes): 40 Discharge Plan Discharge Items Patient Disposition: Home - Self-Care Reason For Visit: ABD PAIN Discharge Diagnosis: Sigmoid diverticulitis Activity: Per Instructions section Non-emergency contact: Primary Care Provider and Warehouse Representative Call non-emergency contact if: you have any medication questions and your symptoms worsen Follow-up/Referrals: Paul Quinonez MD [Primary Care Provider] - (Date & Time 05/30/2022 2:00 PM Provider Paul Quinonez MD [facility] ) Diet: Low Fiber and Low Fat Addtl Attending Provider Instructions: Follow-up with your primary care doctor, the appointment was scheduled for you for May 30. Finish antibiotic treatment with ciprofloxacin and metronidazole, as prescribed. You should then follow-up with gastroenterology. Pending Studies at Discharge: No Stand-Alone Forms: My [facility], Smoking Cessation Medications and DC Order Prescriptions: New ciprofloxacin HCl 500 mg tablet 500 mg PO BID 9 Days Qty: 18 0RF metronidazole 500 mg tablet 500 mg PO TID 9 Days Qty: 27 0RF Continued magnesium PO DAILY lisinopril [Zestril] 10 mg tablet 10 mg PO QAM levothyroxine [Synthroid] 112 mcg tablet 112 mcg PO DAILYBB rosuvastatin [Crestor] 5 mg tablet 5 mg PO HS hydrocodone-acetaminophen 5-325 mg tablet 1 tab PO Q6H PRN (Reason: Pain) Discontinued amoxicillin-pot clavulanate 875-125 mg tablet 1 tab PO TID Qty: 21 0RF Discharge Orders: Discharge Order (Routine); Ordered 05/24/22 Ordered By: Clemente Stratton Admission Data Admit Date/Time: 05/20/22 06:04 Attending Provider: Clemente Stratton Admit Provider: Salvador Carrasco Primary Care Provider: Paul Quinonez Other Providers: Salvador Carrasco ; Carlos Birmingham ; Sourav Prater ; Bettye Donato ; Halley Chowdhury ; Goldy Escalante ; Tu Altman ; Lilia Melgoza ; Mery Whitney ; Jonathan Quick Jr ; Deja Cabrera ; Arnie Gross ; Herlinda Martinez
--- NOTE | 2022-05-24 15:39 | Surgery Progress Note ---
Date of Service May 24, 2022 Assessment & Plan (1) Sigmoid diverticulitis: Plan: responding to IV abx no leukocytosis afebrile passing gas, no bowel movement yet no abdominal pain today Plan: Okay to transition to oral antibiotics and possible discharge later today, will talk with hospitalist will need GI follow-up and colonoscopy in 4-6 weeks Would recommend 14 day total course of IV and oral antibiotics Low fiber diet for [address] Birmingham has seen and examined pt, agrees with above. Admission and Anticipated Discharge Date Admission Date: May 20, 2022 Subjective feeling much better today not having any abdominal pain tolerated diet today no n,v passing gas, no bowel movement yet ready to go home Physical Exam Constitutional: WD/WN, vitals as above + obese, cooperative and comfortable; no acute distress and not ill appearing Neck: normal visual inspection and trachea midline Respiratory: normal respiratory effort; no respiratory distress and no labored breathing Gastrointestinal (Abdomen): Inspection/Auscultation: abdomen normal to inspection; abdomen not distended Percussion/Palpation: abdomen soft; abdomen nontender, no guarding and abdomen not rigid Skin: no rashes, warm and dry Psychiatric: A+Ox3, euthymic affect Results & Data ([facility]) Vital Signs (Past 12 Hours) Vital Signs Temp Pulse Pulse Resp BP BP Pulse Ox 05/24/22 15:19 36.6 C 60 73 16 130/72 120/74 96 05/24/22 11:10 36.6 C 60 16 120/74 96 05/24/22 08:04 36.5 C 62 15 130/72 97 O2 Del Method 05/24/22 15:19 05/24/22 11:10 Room Air 05/24/22 08:04 Room Air Laboratory Results 05/24/22 05/24/22 Range/Units 07:48 07:48 WBC 8.35 (4.8-10.8) K/ul RBC 4.06 (3.93-5.22) M/uL Hgb 11.6 L (12.0-16.0) g/dl Hct 34.0 L (34.1-44.9) % MCV 83.7 (80.0-100.0) fL MCH 28.6 (25.0-34.0) pg MCHC 34.1 (32.0-36.0) g/dL RDW Std Deviation 36.7 (36.4-46.3) fL RDW Coeff of Girma 12.0 (11.5-14.5) % Plt Count 354 (130-400) K/uL MPV 8.8 L (9.4-12.3) fL Sodium 139 (136-145) mmol/L Potassium 4.2 (3.5-5.1) mmol/L Chloride 107 (98-107) mmol/L Carbon Dioxide 28 (21-32) mmol/L Anion Gap 4 (3-11) BUN 7 (6-23) mg/dl Creatinine 0.93 (0.6-1.2) mg/dl Est Cr Clr Drug Dosing 48.7 ml/min Est GFR ( Amer) 67.3 ml/min Est GFR (Non-Af Amer) 58.0 ml/min BUN/Creatinine Ratio 7.5 L (10-20) Glucose 91 (70-99(Fasting)) mg/dl Calcium 8.7 (8.5-10.1) mg/dl Phosphorus 3.0 (2.5-4.9) mg/dl Magnesium 1.7 (1.7-2.4) mg/dl
== END 2022-05-24 17:17 | disposition home or self-care (01) | DRG 392 ==
LOC: ED 03:08 → 3W 06:04